=== PATIENT | female | born 1970 | race Caucasian/White ===

== ENCOUNTER 2017-03-05 14:08 | Emergency (ER) | payer SELFPAY ==
[2017-03-05] MEDS ORDERED: NORMAL SALINE 1000 ML 1,000 ML IV PRN (14:38)
[2017-03-05] MEDS ORDERED: ONDANSETRON HCL INJ/PF 4 MG/2 ML SDV IV ONE (14:38)
[2017-03-05] MEDS ORDERED: KETOROLAC TROMETHAMINE INJ/PF 30 MG/1 ML SDV IV ONE (14:38)
--- NOTE | 2017-03-05 14:40 | ER Document Report ---
ED General - General Chief Complaint: Abdominal Injury Stated Complaint: ABDOMINAL PAIN Time Seen by Provider: 03/05/17 14:32 Mode of Arrival: Ambulatory Information source: Patient TRAVEL OUTSIDE OF THE [place] IN LAST 30 DAYS: No - HPI Patient complains to provider of: Generalized pain Onset: Other - 2-3 days Onset/Duration: Gradual, Persistent Quality of pain: Achy Severity: Moderate Pain Level: 3 Associated symptoms: Body/muscle aches, Nausea Exacerbated by: Movement Relieved by: Denies Similar symptoms previously: Yes Recently seen / treated by doctor: Yes Notes: Patient is a 44-year-old female with a history of chronic pain from arthritis, as well as hypertension, who presents to the emergency room today complaining of knee pain, abdominal pain, back pain, nausea, symptoms have been going on for the past few days, she reports having hot flashes at times, denies vomiting or diarrhea, last bowel movement was yesterday and normal without blood, patient denies dysuria, no vaginal discharge or irregular bleeding, denies a history of similar symptoms previously, she was seen by pain management on the of last month, and had baclofen added to her medication regimen but no other recent medication change, patient did not list chest pain as 1 of her concerns, however when I was interviewing and examining her she stated nothing hurts in her chest - Related Data Allergies/Adverse Reactions: No Known Allergies Allergy (Verified 05/01/15 14:08) Past Medical History - General Information source: Patient - Social History Smoking Status: Never Smoker Family History: Reviewed & Not Pertinent Patient has suicidal ideation: No Patient has homicidal ideation: No - Past Medical History Cardiac Medical History: Reports: Hx Hypertension Denies: Hx Coronary Artery Disease, Hx Heart Attack Pulmonary Medical History: Reports: Hx Asthma Denies: Hx Bronchitis, Hx COPD, Hx Pneumonia Neurological Medical History: Denies: Hx Cerebrovascular Accident, Hx Seizures Renal/ Medical History: Denies: Hx Peritoneal Dialysis Musculoskeltal Medical History: Denies Hx Arthritis Past Surgical History: Reports: Hx Tubal Ligation - Immunizations Hx Diphtheria, Pertussis, Tetanus Vaccination: Yes Review of Systems - Review of Systems Constitutional: No symptoms reported EENT: No symptoms reported Cardiovascular: No symptoms reported Respiratory: No symptoms reported Gastrointestinal: See HPI Genitourinary: No symptoms reported Female Genitourinary: No symptoms reported Musculoskeletal: See HPI Skin: No symptoms reported Hematologic/Lymphatic: No symptoms reported Neurological/Psychological: No symptoms reported -: Yes All other systems reviewed and negative Physical Exam - Vital signs Vitals: Temp Pulse Resp BP Pulse Ox 98 F 80 18 143/108 H 100 03/05/17 14:11 03/05/17 14:11 03/05/17 14:11 03/05/17 14:11 03/05/17 14:11 Interpretation: Normal - General General appearance: Appears well, Alert - HEENT Head: Normocephalic, Atraumatic Eyes: Normal Pupils: PERRL - Respiratory Respiratory status: No respiratory distress Chest status: Nontender Breath sounds: Normal Chest palpation: Normal - Cardiovascular Rhythm: Regular Heart sounds: Normal auscultation Murmur: No - Abdominal Inspection: Normal Distension: No distension Bowel sounds: Normal Tenderness: Nontender Organomegaly: No organomegaly - Back Back: Normal, Tender - Tender to palpate in thoracic and lower lumbar paraspinal musculature, mostly on the right with mild tenderness on the left as well - Extremities General upper extremity: Normal inspection, Nontender, Normal color, Normal ROM , Normal temperature General lower extremity: Normal inspection, Nontender, Normal color, Normal ROM , Normal temperature, Normal weight bearing. No: Kenton's sign - Neurological Neuro grossly intact: Yes Cognition: Normal Orientation: AAOx4 [place] Coma Scale Eye Opening: Spontaneous David Coma Scale Verbal: Oriented [place] Coma Scale Motor: Obeys Commands David Coma Scale Total: 15 Speech: Normal Motor strength normal: LUE, RUE, LLE, RLE Sensory: Normal - Psychological Associated symptoms: Normal affect, Normal mood - Skin Skin Temperature: Warm Skin Moisture: Dry Skin Color: Normal Course - Re-evaluation Re-evalutation: 03/05/17 20:04 Lab and imaging findings were discussed with patient at bedside which are unremarkable, she was advised to continue taking her medications at home, 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 or return if symptoms worsen, patient acknowledges understanding and agreement with this plan - Vital Signs Vital signs: Temp Pulse Resp BP Pulse Ox 98 F 80 15 116/68 98 03/05/17 14:11 03/05/17 14:11 03/05/17 17:31 03/05/17 17:31 03/05/17 17:31 - Laboratory Result Diagrams: 03/05/17 15:05 03/05/17 15:05 Laboratory results interpreted by me: 03/05/17 03/05/17 03/05/17 15:05 15:05 16:40 RDW 14.5 H Creatinine 1.43 H Est GFR ( Amer) 48 L Est GFR (Non-Af Amer) 40 L Calcium 10.4 H Urine Blood SMALL H - Diagnostic Test Radiology reviewed: Image reviewed, Reports reviewed - EKG Interpretation by Me EKG shows normal: Sinus rhythm Rate: Normal Rhythm: NSR Discharge - Discharge Clinical Impression: Body aches Condition: Stable Disposition: HOME, SELF-CARE Instructions: Chronic Back Pain ([facility]), Low Back Pain ([facility]), Abdominal Pain ([facility] ) Additional Instructions: Follow up with your primary care provider in one to 2 days. Return to the emergency room immediately if symptoms worsen or any additional concerns.
--- NOTE | 2017-03-05 15:27 | RADIOLOGY REPORT (SQ) ---
EXAM DESCRIPTION: CHEST PA/LAT COMPLETED DATE/TIME: 03/05/2017 3:12 pm REASON FOR STUDY: cp COMPARISON: None. EXAM PARAMETERS: NUMBER OF VIEWS: two views TECHNIQUE: Digital Frontal and Lateral radiographic views of the chest acquired. RADIATION DOSE: NA LIMITATIONS: none FINDINGS: LUNGS AND PLEURA: No opacities, masses or pneumothorax. No pleural effusion. MEDIASTINUM AND HILAR STRUCTURES: No masses or contour abnormalities. HEART AND VASCULAR STRUCTURES: Heart normal size. No evidence for failure. BONES: No acute findings. HARDWARE: None in the chest. OTHER: No other significant finding. IMPRESSION: NO SIGNIFICANT RADIOGRAPHIC FINDING IN THE CHEST. TECHNICAL DOCUMENTATION: JOB ID: [id number] [employer]- All Rights Reserved
[2017-03-05 15:36] LABS: ABSOLUTE BASOPHILS # (AUTO) 0.1 10^3/uL (0.0-0.2); ABSOLUTE EOSINOPHILS # (AUTO) 0.2 10^3/uL (0.0-0.6); ABSOLUTE LYMPHOCYTES (AUTO) 2.3 10^3/uL (0.5-4.7); ABSOLUTE MONOCYTES (AUTO) 0.6 10^3/uL (0.1-1.4); ABSOLUTE NEUT (AUTO) 4.7 10^3/uL (1.7-8.2); BASOPHILS % (AUTO) 1.2 % (0-2); EOSINOPHILS % (AUTO) 2.5 % (0-6); HEMATOCRIT 42.5 % (36.0-47.0); HGB HCT DIFFERENCE -0.5; LYMPHOCYTES % (AUTO) 29.5 % (13-45); MEAN CORPUSCULAR HEMOGLOBIN 29.5 pg (27.0-33.4); MEAN CORPUSCULAR HGB CONC 32.9 g/dL (32.0-36.0); MEAN CORPUSCULAR VOLUME 90 fl (80-97); MONOCYTES % (AUTO) 7.3 % (3-13); RED BLOOD COUNT 4.74 10^6/uL (3.72-5.28); RED CELL DISTRIBUTION WIDTH 14.5 % (11.5-14.0); SEGMENTED NEUTROPHILS % (AUTO) 59.5 % (42-78); WHITE BLOOD COUNT 7.8 10^3/uL (4.0-10.5)
[2017-03-05 15:50] LABS: ALANINE AMINOTRANSFERASE 25 U/L (9-52); ALBUMIN 4.4 g/dL (3.5-5.0); ALKALINE PHOSPHATASE 75 U/L (38-126); ANION GAP 13 (5-19); ASPARTATE AMINO TRANSFERASE 17 U/L (14-36); BILIRUBIN,DIRECT 0.3 mg/dL (0.0-0.4); BILIRUBIN,TOTAL 0.9 mg/dL (0.2-1.3); BLOOD UREA NITROGEN 18 mg/dL (7-20); CALCIUM 10.4 mg/dL (8.4-10.2); CARBON DIOXIDE 27 mmol/L (22-30); CHLORIDE 99 mmol/L (98-107); CREATININE RESULT 1.43 mg/dL (0.52-1.25); GLUCOSE 92 mg/dL (75-110); LIPASE 107.8 U/L (23-300); POTASSIUM 4.1 mmol/L (3.6-5.0); SODIUM 139.4 mmol/L (137-145)
--- NOTE | 2017-03-05 16:47 | EKG REPORT ---
SEVERITY:- ABNORMAL ECG - SINUS RHYTHM BORDERLINE LEFT AXIS DEVIATION BORDERLINE T ABNORMALITIES, ANTERIOR LEADS : Confirmed by: Mohan Mckeon MD 05-Mar-2017 16:46:02
[2017-03-05 17:17] LABS: APPEARANCE,URINE CLOUDY; BILIRUBIN,URINE NEGATIVE (NEGATIVE); GLUCOSE, URINE NEGATIVE (NEGATIVE); KETONES,URINE NEGATIVE (NEGATIVE); LEUKOCYTE ESTERASE,URINE NEGATIVE (NEGATIVE); NITRITE,URINE NEGATIVE (NEGATIVE); PROTEIN,URINE NEGATIVE (NEGATIVE); URINE SPECIFIC GRAVITY 1.027; UROBILINOGEN,URINE NEGATIVE mg/dL (<2.0)
[2017-03-05 17:35] VITALS: BP 116/68
== END 2017-03-05 17:44 | disposition home or self-care (01) ==
LOC: ER 14:08
DX: M79.1 Myalgia (principal); R10.84 Generalized abdominal pain; I10 Essential (primary) hypertension; M25.569 Pain in unspecified knee; M54.9 Dorsalgia, unspecified; R11.0 Nausea
CPT/HCPCS: 93005; 99284; 96361; 96374; 96375; 36415; 87086; 83690; 85025; 80053; 81001; 84484; 71020; 93010; J1885; J2405; J7030

== ENCOUNTER 2017-05-02 08:53 | Emergency (ER) | payer SELFPAY ==
--- NOTE | 2017-05-02 09:32 | ER Document Report ---
ED Headache - General Chief Complaint: Headache >24 hrs old Stated Complaint: HEADACHE Time Seen by Provider: 05/02/17 09:31 Mode of Arrival: Ambulatory Information source: Patient TRAVEL OUTSIDE OF THE [place] IN LAST 30 DAYS: No - HPI Patient complains to provider of: Headache Patient reports: Occasional migraines, Other - HAS HAD INFREQUENT "MIGRAINES" IN THE PAST, THIS IS DIFFERENT. No: Brain neoplasm, Congenital anomally, Frequent migraines, Hx chronic headaches, Prior CVA, Prior neurologic eval, Prior hemorrhage, Prior TBI, ANTI TANK MISSILEMAN Shunt Onset: Other - 2 d AGO Onset was: Cannot pinpoint, Gradual Timing: Still present - INTENSITY VARIES, HAS RESOLVED FOR BRIEF PERIODS (AFTER TAKING HYDROCODONE), THEN RECURS Quality of pain: Sharp - BIFRONTAL, Throbbing Severity: Moderate Context: denies: CO exposure, Head injury, Insect bite, Meningitis exposure, Tick bite Associated symptoms: Photophobia. denies: Chills, Double/blurred vision, Fever , Nausea/vomiting, Sweaty Exacerbated by: Light, Movement Similar symptoms previously: No Recently seen / treated by doctor: No - Related Data Allergies/Adverse Reactions: No Known Allergies Allergy (Verified 05/02/17 09:11) Past Medical History - General Information source: Patient - Social History Smoking Status: Never Smoker Cigarette use (# per day): No Chew tobacco use (# tins/day): No Frequency of alcohol use: None Drug Abuse: None Lives with: Family Family History: Reviewed & Not Pertinent Patient has suicidal ideation: No - Past Medical History Cardiac Medical History: Reports: Hx Hypertension Denies: Hx Coronary Artery Disease, Hx Heart Attack Pulmonary Medical History: Reports: Hx Asthma Denies: Hx Bronchitis, Hx COPD, Hx Pneumonia Neurological Medical History: Reports: Hx Migraine - VERY RARE IN RECENT YEARS. Denies: Hx Cerebrovascular Accident, Hx Seizures Endocrine Medical History: Reports: None Renal/ Medical History: Reports: None. Denies: Hx Peritoneal Dialysis Malignancy Medical History: Reports: None GI Medical History: Reports: None Musculoskeltal Medical History: Reports None, Denies Hx Arthritis Psychiatric Medical History: Reports: None Past Surgical History: Reports: Hx Tubal Ligation - Immunizations Hx Diphtheria, Pertussis, Tetanus Vaccination: Yes Review of Systems - Review of Systems Constitutional: No symptoms reported EENT: No symptoms reported Cardiovascular: No symptoms reported Respiratory: No symptoms reported Gastrointestinal: No symptoms reported Genitourinary: No symptoms reported Female Genitourinary: No symptoms reported Musculoskeletal: Back pain - CHRONIC Skin: No symptoms reported Neurological/Psychological: See HPI Physical Exam - Vital signs Vitals: Temp Pulse Resp BP Pulse Ox 98.7 F 70 18 148/103 H 97 05/02/17 09:10 05/02/17 09:10 05/02/17 09:10 05/02/17 09:10 05/02/17 09:10 Interpretation: Hypertensive. No: Bradycardic, Tachycardic, Tachypneic, Febrile - General General appearance: Appears well, Alert In distress: None - HEENT Head: Normocephalic Eyes: Normal Conjunctiva: Normal Ears: Normal Nasal: Normal Mouth/Lips: Normal Mucous membranes: Normal - Respiratory Respiratory status: No respiratory distress Breath sounds: Normal - Cardiovascular Rhythm: Regular Heart sounds: Normal auscultation Murmur: No - Abdominal Inspection: Obese - Back Back: Normal - Extremities General upper extremity: Normal inspection General lower extremity: Normal inspection - Neurological Neuro grossly intact: Yes Cognition: Normal Orientation: AAOx4 - Psychological Associated symptoms: Normal affect, Normal mood - Skin Skin Temperature: Warm Skin Moisture: Dry Skin Color: Normal Skin Turgor: Elastic Course - Re-evaluation Re-evalutation: 05/02/17 11:41 Patient states headache is improved. Results of laboratory and radiographic studies discussed. She is advised to follow-up with her PCP concerning CT scan results. - Vital Signs Vital signs: Temp Pulse Resp BP Pulse Ox 98.7 F 70 18 148/103 H 97 05/02/17 09:10 05/02/17 09:10 05/02/17 09:10 05/02/17 09:10 05/02/17 09:10 - Laboratory Result Diagrams: 05/02/17 10:30 05/02/17 10:30 Laboratory results interpreted by me: 05/02/17 05/02/17 10:30 10:30 RDW 14.1 H Est GFR ( Amer) 58 L Est GFR (Non-Af Amer) 48 L - Diagnostic Test Radiology reviewed: Image reviewed, Reports reviewed Discharge - Discharge Clinical Impression: Hypertension, essential Headache Qualifiers: Headache type: unspecified Headache chronicity pattern: acute headache Intractability: not intractable Qualified Code(s): R51 - Headache Condition: Stable Disposition: HOME, SELF-CARE Instructions: Headache ([facility]), Reglan ([facility]), Intravenous (IV) Fluids ([facility]) Prescriptions: Butalb/Acetaminophen/Caffeine [Fioricet (50-325-40 mg) Tablet] 1 - 2 tab PO Q4H PRN #20 each PRN Reason: For Headache Referrals: HANNAH WARD MD [Primary Care Provider] - Follow up in 3-5 days
[2017-05-02] MEDS ORDERED: DIPHENHYDRAMINE HCL 50 MG/ML VIAL IV ONE (09:52)
[2017-05-02] MEDS ORDERED: METOCLOPRAMIDE HCL INJ/PF 10 MG/2 ML SDV IV ONE (09:52)
[2017-05-02] MEDS ORDERED: NORMAL SALINE 1000 ML 1,000 ML IV ONE (09:52)
--- NOTE | 2017-05-02 10:20 | RADIOLOGY REPORT (SQ) ---
EXAM DESCRIPTION: CT HEAD WITHOUT COMPLETED DATE/TIME: 05/02/2017 10:07 am REASON FOR STUDY: HEADACHE COMPARISON: None. TECHNIQUE: Axial images acquired through the brain without intravenous contrast. Images reviewed wi th bone, brain and subdural windows. Images stored on PACS. All CT scanners at this facility use dose modulation, iterative reconstruction, and/or weight based d osing when appropriate to reduce radiation dose to as low as reasonably achievable (ALARA). [facility]: Dose Right [facility]: CareDose [facility]: Dose Right [facility]: Teradose 4D [facility]: [employer] RADIATION DOSE: Up-to-date CT equipment and radiation dose reduction techniques were employed. CTDIv ol: 64.6 mGy. DLP: 1163 mGy-cm. mGy. LIMITATIONS: None. FINDINGS: VENTRICLES: Normal size and contour. CEREBRUM: No masses. No hemorrhage. No midline shift. No evidence for acute infarction. Normal gra y/white matter differentiation. No areas of low density in the white matter. CEREBELLUM: No masses. No hemorrhage. No alteration of density. No evidence for acute infarction. EXTRAAXIAL SPACES: No fluid collections. No masses. ORBITS AND GLOBE: No intra- or extraconal masses. Normal contour of globe without masses. CALVARIUM: No fracture. PARANASAL SINUSES: The large mucous retention cysts in the right maxillary sinus and a couple of smal l retention cysts in the left. SOFT TISSUES: No mass or hematoma. OTHER: The sella has a slightly expanded. No mass is appreciated in the sella. There is no mass ext ending into the suprasellar space. IMPRESSION: 1. There is no acute intracranial pathology. 2. Possible empty sella syndrome. 3. Maxillary sinus disease. EVIDENCE OF ACUTE STROKE: NO. COMMENT: Quality ID # [id number]: Final reports with documentation of one or more dose reduction techniques (e.g., Automated exposure control, adjustment of the mA and/or kV according to patient size, use of iterative reconstruction technique) TECHNICAL DOCUMENTATION: JOB ID: [id number] [employer]- All Rights Reserved
[2017-05-02 10:44] LABS: ABSOLUTE BASOPHILS # (AUTO) 0.1 10^3/uL (0.0-0.2); ABSOLUTE EOSINOPHILS # (AUTO) 0.2 10^3/uL (0.0-0.6); ABSOLUTE LYMPHOCYTES (AUTO) 2.2 10^3/uL (0.5-4.7); ABSOLUTE MONOCYTES (AUTO) 0.4 10^3/uL (0.1-1.4); ABSOLUTE NEUT (AUTO) 3.9 10^3/uL (1.7-8.2); BASOPHILS % (AUTO) 1.9 % (0-2); EOSINOPHILS % (AUTO) 3.4 % (0-6); HEMATOCRIT 39.2 % (36.0-47.0); HGB HCT DIFFERENCE -0.2; LYMPHOCYTES % (AUTO) 31.9 % (13-45); MEAN CORPUSCULAR HEMOGLOBIN 28.9 pg (27.0-33.4); MEAN CORPUSCULAR HGB CONC 33.1 g/dL (32.0-36.0); MEAN CORPUSCULAR VOLUME 87 fl (80-97); MONOCYTES % (AUTO) 5.9 % (3-13); RED BLOOD COUNT 4.49 10^6/uL (3.72-5.28); RED CELL DISTRIBUTION WIDTH 14.1 % (11.5-14.0); SEGMENTED NEUTROPHILS % (AUTO) 56.9 % (42-78); WHITE BLOOD COUNT 6.9 10^3/uL (4.0-10.5)
[2017-05-02 11:04] LABS: ALANINE AMINOTRANSFERASE 27 U/L (9-52); ALBUMIN 3.8 g/dL (3.5-5.0); ALKALINE PHOSPHATASE 71 U/L (38-126); ANION GAP 8 (5-19); ASPARTATE AMINO TRANSFERASE 17 U/L (14-36); BILIRUBIN,DIRECT 0.3 mg/dL (0.0-0.4); BILIRUBIN,TOTAL 0.7 mg/dL (0.2-1.3); BLOOD UREA NITROGEN 8 mg/dL (7-20); CALCIUM 9.5 mg/dL (8.4-10.2); CARBON DIOXIDE 29 mmol/L (22-30); CHLORIDE 101 mmol/L (98-107); CREATININE RESULT 1.22 mg/dL (0.52-1.25); GLUCOSE 88 mg/dL (75-110); POTASSIUM 3.7 mmol/L (3.6-5.0); SODIUM 138.1 mmol/L (137-145); TOTAL PROTEIN 6.9 g/dL (6.3-8.2)
[2017-05-02 11:37] LABS: APPEARANCE,URINE CLEAR; BILIRUBIN,URINE NEGATIVE (NEGATIVE); GLUCOSE, URINE NEGATIVE (NEGATIVE); KETONES,URINE NEGATIVE (NEGATIVE); LEUKOCYTE ESTERASE,URINE NEGATIVE (NEGATIVE); NITRITE,URINE NEGATIVE (NEGATIVE); PROTEIN,URINE NEGATIVE (NEGATIVE); URINE SPECIFIC GRAVITY 1.003; UROBILINOGEN,URINE NEGATIVE mg/dL (<2.0)
[2017-05-02 11:56] VITALS: BP 145/110
== END 2017-05-02 11:55 | disposition home or self-care (01) ==
LOC: ER 08:53
DX: R51 Headache (principal); I10 Essential (primary) hypertension; M54.9 Dorsalgia, unspecified; G89.29 Other chronic pain
CPT/HCPCS: 99284; 96374; 96375; 36415; 85025; 80053; 81001; 70450; J1200; J2765; J7030

== ENCOUNTER 2017-05-11 19:28 | Emergency (ER) | payer OTHER ==
[2017-05-11 20:03] VITALS: BP 149/93
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
[2017-05-11] MEDS ORDERED: KETOROLAC TROMETHAMINE 60 MG/2 ML SDV IM ONE (20:42)
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
== END 2017-05-11 22:05 | disposition home or self-care (01) ==
LOC: ER 19:28
DX: S09.90XA Unspecified injury of head, initial encounter (principal); M25.462 Effusion, left knee; M25.562 Pain in left knee; R51 Headache; M54.9 Dorsalgia, unspecified; G89.29 Other chronic pain; V87.7XXA Person injured in collision between other specified motor vehicles (traffic), initial encounter
CPT/HCPCS: 99283; 96372; 73562; L1830; J1885

== ENCOUNTER 2017-09-30 07:26 | Emergency (ER) | payer OTHER ==
[2017-09-30] MEDS ORDERED: CYCLOBENZAPRINE HCL 10 MG TABLET PO ONE (07:46)
[2017-09-30 07:54] VITALS: BP 162/108
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
--- NOTE | 2017-09-30 14:45 | EKG REPORT ---
SEVERITY:- BORDERLINE ECG - SINUS RHYTHM PROBABLE LEFT ATRIAL ABNORMALITY BORDERLINE PROLONGED QT INTERVAL : Confirmed by: Mohan Mckeon MD 30-Sep-2017 14:44:32
== END 2017-09-30 09:45 | disposition home or self-care (01) ==
LOC: ER 07:26
DX: M25.561 Pain in right knee (principal); R07.9 Chest pain, unspecified; M54.2 Cervicalgia; V47.5XXA Car driver injured in collision with fixed or stationary object in traffic accident, initial encounter; I10 Essential (primary) hypertension; Z98.51 Tubal ligation status
CPT/HCPCS: 70450; 71046; 72125; 93005; 93010; 99285

== ENCOUNTER 2018-03-09 12:53 | Emergency (ER) | payer SELFPAY ==
[2018-03-09] MEDS ORDERED: DIPHENHYDRAMINE HCL 50 MG/ML VIAL IV ONE (15:43)
[2018-03-09] MEDS ORDERED: NORMAL SALINE 1000 ML 1,000 ML IV ONE (15:43)
[2018-03-09] MEDS ORDERED: ONDANSETRON HCL INJ/PF 4 MG/2 ML SDV IV ONE (15:43)
--- NOTE | 2018-03-09 15:47 | ER Document Report ---
ED Medical Screen (RME) - General Chief Complaint: Headache Stated Complaint: SIDE PAIN Time Seen by Provider: 03/09/18 15:34 Mode of Arrival: Ambulatory Information source: Patient TRAVEL OUTSIDE OF THE [place] IN LAST 30 DAYS: No - HPI Notes: 03/09/18 15:44 47-year-old female who has a medical history of lumbar back pain and sees [facility] for this issue and hypertension presents to the ED with complaints of severe headaches that started this morning approximately 4 hours ago also states she was seeing spots for about a week. States headache radiates to her right back which is causing right-sided chest pain. Patient states she started with right upper quadrant abdominal pain last night, sharp and constant. Has not tried any qaln-hmn-yreziss medication for this pain. Worse with time, nothing makes better. Patient was able to eat oatmeal this morning. Denies any nausea or vomiting. s1 s2 regular lungs cta tenderness to RUQ on palpation with rebound, +dayana's sign I have greeted and performed a rapid initial assessment of this patient. A comprehensive ED assessment and evaluation of the patient, analysis of test results and completion of medical decision making process will be conducted by an additional ED providers. - Related Data Allergies/Adverse Reactions: No Known Allergies Allergy (Verified 05/02/17 09:11) Past Medical History - Past Medical History Cardiac Medical History: Reports: Hx Hypertension Denies: Hx Coronary Artery Disease, Hx Heart Attack Pulmonary Medical History: Reports: Hx Asthma Denies: Hx Bronchitis, Hx COPD, Hx Pneumonia Neurological Medical History: Reports: Hx Migraine - VERY RARE IN RECENT YEARS. Denies: Hx Cerebrovascular Accident, Hx Seizures Renal/ Medical History: Denies: Hx Peritoneal Dialysis Musculoskeltal Medical History: Denies Hx Arthritis Past Surgical History: Reports: Hx Tubal Ligation - Immunizations Hx Diphtheria, Pertussis, Tetanus Vaccination: Yes Physical Exam - Vital signs Vitals: Temp Pulse Resp BP Pulse Ox 98.8 F 87 20 151/91 H 98 03/09/18 13:43 03/09/18 13:43 03/09/18 13:43 03/09/18 13:43 03/09/18 13:43 Course - Vital Signs Vital signs: Temp Pulse Resp BP Pulse Ox 98.8 F 87 20 151/91 H 98 03/09/18 13:43 03/09/18 13:43 03/09/18 13:43 03/09/18 13:43 03/09/18 13:43 Doctor's Discharge - Discharge Referrals: HANNAH WARD MD [Primary Care Provider] - Follow up as needed
--- NOTE | 2018-03-09 16:22 | RADIOLOGY REPORT (SQ) ---
EXAM DESCRIPTION: CHEST SINGLE VIEW COMPLETED DATE/TIME: 03/09/2018 4:08 pm REASON FOR STUDY: right sided chest pain COMPARISON: 09/30/2017 EXAM PARAMETERS: NUMBER OF VIEWS: One view. TECHNIQUE: Single frontal radiographic view of the chest acquired. RADIATION DOSE: NA LIMITATIONS: None. FINDINGS: LUNGS AND PLEURA: No opacities, masses or pneumothorax. No pleural effusion. MEDIASTINUM AND HILAR STRUCTURES: No masses. Contour normal. HEART AND VASCULAR STRUCTURES: Heart normal in size. Normal vasculature. BONES: No acute findings. HARDWARE: None in the chest. OTHER: No other significant finding. IMPRESSION: NO ACUTE RADIOGRAPHIC FINDING IN THE CHEST. TECHNICAL DOCUMENTATION: JOB ID: [id number] [employer]- All Rights Reserved Reading location - IP/workstation name: [email or web address]
--- NOTE | 2018-03-09 16:26 | RADIOLOGY REPORT (SQ) ---
EXAM DESCRIPTION: CT HEAD WITHOUT COMPLETED DATE/TIME: 03/09/2018 4:13 pm REASON FOR STUDY: severe santiago, different than her other santiago COMPARISON: 09/30/2017 TECHNIQUE: Axial images acquired through the brain without intravenous contrast. Images reviewed wi th bone, brain and subdural windows. Additional sagittal and coronal reconstructions were generated. Images stored on PACS. All CT scanners at this facility use dose modulation, iterative reconstruction, and/or weight based d osing when appropriate to reduce radiation dose to as low as reasonably achievable (ALARA). [facility]: Dose Right [facility]: CareDose [facility]: Dose Right [facility]: Teradose 4D [facility]: [employer] RADIATION DOSE: CT Rad equipment meets quality standard of care and radiation dose reduction techniq ues were employed. CTDIvol: 53.2 mGy. DLP: 1124 mGy-cm. mGy. LIMITATIONS: None. FINDINGS: VENTRICLES: Normal size and contour. CEREBRUM: No masses. No hemorrhage. No midline shift. No evidence for acute infarction. Normal gra y/white matter differentiation. No areas of low density in the white matter. CEREBELLUM: No masses. No hemorrhage. No alteration of density. No evidence for acute infarction. EXTRAAXIAL SPACES: No fluid collections. No masses. ORBITS AND GLOBE: No intra- or extraconal masses. Normal contour of globe without masses. CALVARIUM: No fracture. PARANASAL SINUSES: No fluid or mucosal thickening. SOFT TISSUES: No mass or hematoma. OTHER: The sella is prominent but no pituitary mass is appreciated. IMPRESSION: No acute intracranial imaging findings. Prominent sella may suggest empty sella syndrom e. Consider MRI for evaluation of the pituitary. EVIDENCE OF ACUTE STROKE: NO. COMMENT: Quality ID # [id number]: Final reports with documentation of one or more dose reduction techniques (e.g., Automated exposure control, adjustment of the mA and/or kV according to patient size, use of iterative reconstruction technique) TECHNICAL DOCUMENTATION: JOB ID: [id number] [employer]- All Rights Reserved Reading location - IP/workstation name: [email or web address]
[2018-03-09 16:55] LABS: ABSOLUTE BASOPHILS # (AUTO) 0.1 10^3/uL (0.0-0.2); ABSOLUTE EOSINOPHILS # (AUTO) 0.1 10^3/uL (0.0-0.6); ABSOLUTE LYMPHOCYTES (AUTO) 2.9 10^3/uL (0.5-4.7); ABSOLUTE MONOCYTES (AUTO) 0.5 10^3/uL (0.1-1.4); BASOPHILS % (AUTO) 1.3 % (0-2); EOSINOPHILS % (AUTO) 1.5 % (0-6); HEMOGLOBIN 13.4 g/dL (12.0-15.5); LYMPHOCYTES % (AUTO) 33.2 % (13-45); MEAN CORPUSCULAR HEMOGLOBIN 28.9 pg (27.0-33.4); MEAN CORPUSCULAR HGB CONC 32.7 g/dL (32.0-36.0); MEAN CORPUSCULAR VOLUME 88 fl (80-97); MONOCYTES % (AUTO) 6.2 % (3-13); PLATELET COUNT 278 10^3/uL (150-450); RED BLOOD COUNT 4.64 10^6/uL (3.72-5.28); RED CELL DISTRIBUTION WIDTH 14.4 % (11.5-14.0); SEGMENTED NEUTROPHILS % (AUTO) 57.8 % (42-78); TOTAL CELLS COUNTED % (AUTO) 100 %; WHITE BLOOD COUNT 8.7 10^3/uL (4.0-10.5)
[2018-03-09 17:15] LABS: APPEARANCE,URINE SLIGHTLY-CLOUDY; BILIRUBIN,URINE NEGATIVE (NEGATIVE); COLOR,URINE YELLOW; GLUCOSE, URINE NEGATIVE (NEGATIVE); KETONES,URINE NEGATIVE (NEGATIVE); LEUKOCYTE ESTERASE,URINE NEGATIVE (NEGATIVE); NITRITE,URINE NEGATIVE (NEGATIVE); PROTEIN,URINE NEGATIVE (NEGATIVE); URINE SPECIFIC GRAVITY 1.017; UROBILINOGEN,URINE NEGATIVE mg/dL (<2.0)
[2018-03-09 17:27] LABS: ALANINE AMINOTRANSFERASE 7 U/L (9-52); ALBUMIN 4.2 g/dL (3.5-5.0); ALKALINE PHOSPHATASE 70 U/L (38-126); ANION GAP 10 (5-19); ASPARTATE AMINO TRANSFERASE 59 U/L (14-36); BILIRUBIN,DIRECT 0.3 mg/dL (0.0-0.4); BILIRUBIN,TOTAL 0.7 mg/dL (0.2-1.3); BLOOD UREA NITROGEN 9 mg/dL (7-20); CALCIUM 8.8 mg/dL (8.4-10.2); CARBON DIOXIDE 30 mmol/L (22-30); CHLORIDE 103 mmol/L (98-107); CREATINE KINASE 149 U/L (30-135); GLUCOSE 88 mg/dL (75-110); LIPASE 91.6 U/L (23-300); POTASSIUM 3.8 mmol/L (3.6-5.0); SODIUM 142.5 mmol/L (137-145); TOTAL PROTEIN 7.8 g/dL (6.3-8.2)
[2018-03-09 17:37] LABS: CREATINE KINASE MB 0.85 ng/mL (<4.55)
[2018-03-09 17:40] LABS: TROPONIN I < 0.012 ng/mL
--- NOTE | 2018-03-09 18:09 | RADIOLOGY REPORT (SQ) ---
EXAM DESCRIPTION: U/S ABDOMEN LTD W/DOPPLER COMPLETED DATE/TIME: 03/09/2018 5:57 pm REASON FOR STUDY: RUQ abd pain COMPARISON: None. TECHNIQUE: Dynamic and static grayscale images acquired of the right upper quadrant and recorded on PACS. Additional selected color Doppler and spectral images recorded. LIMITATIONS: Study limited due to acoustical interference from fat or from air in the bowel. FINDINGS: PANCREAS: Parts or all of the pancreas poorly seen secondary to acoustical interference fr om fat or from air in the bowel. LIVER: Echotexture is coarse with increased echogenicity consistent with fatty infiltration. No mass es. LIVER VASCULATURE: Normal directional flow of the main portal vein and hepatic veins. GALLBLADDER: No stones. Normal wall thickness. No pericholecystic fluid. ULTRASOUND-DETECTED SOLIS'S SIGN: Negative. INTRAHEPATIC DUCTS AND COMMON DUCT: CBD poorly visualized. Intrahepatic ducts normal caliber. No lv ling defects. INFERIOR VENA CAVA: Normal flow. AORTA: No aneurysm. RIGHT KIDNEY: Normal size. Normal echogenicity. No solid or suspicious masses. No hydronephrosis. No calcifications. PERITONEAL CAVITY AND RIGHT PLEURAL SPACE: No ascites or effusions. OTHER: No other significant finding. IMPRESSION: FATTY LIVER. PANCREAS PARTIALLY OR COMPLETELY OBSCURED. OTHERWISE NORMAL RIGHT UPPER TATIANA DRANT ULTRASOUND. TECHNICAL DOCUMENTATION: JOB ID: [id number] [place]-72 2010 [employer]- All Rights Reserved Reading location - IP/workstation name: [email or web address]
[2018-03-09] MEDS ORDERED: PROCHLORPERAZINE EDISYLATE INJ 10 MG/2 ML VIAL IV ONE (20:24)
--- NOTE | 2018-03-09 20:42 | ER Document Report ---
ED General - General Mode of Arrival: Ambulatory Information source: Patient TRAVEL OUTSIDE OF THE [place] IN LAST 30 DAYS: No <RANDY HART - Last Filed: 03/09/18 22:14> <ADAMBOONE Tabor - Last Filed: 03/10/18 13:28> - General Chief Complaint: Headache Stated Complaint: SIDE PAIN Time Seen by Provider: 03/09/18 15:34 Notes: Patient is a 47-year-old female presenting to the emergency department complaining of a right-sided headache, right knee pain and right-sided abdominal pain which radiates into the right side of her back. Patient states that she initially had right sided abdominal pain yesterday which radiated to her back and this morning she woke up with a right sided headache and right- sided knee pain. She also complains of some nausea. She denies any vomiting, sick contacts, fever, cough, congestion, or new added life stressors. Of significance, patient states she is currently taking Oxycodone for arthritis. (RANDY HART) - Related Data Allergies/Adverse Reactions: No Known Allergies Allergy (Verified 05/02/17 09:11) Past Medical History - General Information source: Patient - Social History Smoking Status: Never Smoker Chew tobacco use (# tins/day): No Frequency of alcohol use: None Drug Abuse: None Family History: Reviewed & Not Pertinent Patient has suicidal ideation: No Patient has homicidal ideation: No - Past Medical History Cardiac Medical History: Reports: Hx Hypertension Pulmonary Medical History: Reports: Hx Asthma Neurological Medical History: Reports: Hx Migraine - VERY RARE IN RECENT YEARS Past Surgical History: Reports: Hx Tubal Ligation - Immunizations Hx Diphtheria, Pertussis, Tetanus Vaccination: Yes <RANDY HART - Last Filed: 03/09/18 22:14> Review of Systems - Review of Systems Constitutional: No symptoms reported EENT: No symptoms reported Cardiovascular: No symptoms reported Respiratory: No symptoms reported Gastrointestinal: See HPI, Abdominal pain, Nausea Genitourinary: No symptoms reported Female Genitourinary: No symptoms reported Musculoskeletal: See HPI Skin: No symptoms reported Hematologic/Lymphatic: No symptoms reported Neurological/Psychological: See HPI, Headaches -: Yes All other systems reviewed and negative <RANDY HART - Last Filed: 03/09/18 22:14> Physical Exam <RANDY HART - Last Filed: 03/09/18 22:14> <BOONE MEDINA - Last Filed: 03/10/18 13:28> - Vital signs Vitals: Temp Pulse Resp BP Pulse Ox 98.8 F 87 20 151/91 H 98 03/09/18 13:43 03/09/18 13:43 03/09/18 13:43 03/09/18 13:43 03/09/18 13:43 - Notes Notes: GENERAL: Alert, interacts well. No acute distress. HEAD: Normocephalic, atraumatic. EYES: Pupils equal, round, and reactive to light. Extraocular movements intact. ENT: Oral mucosa moist, tongue midline. NECK: Full range of motion. Supple. Trachea midline. LUNGS: Clear to auscultation bilaterally, no wheezes, rales, or rhonchi. No respiratory distress. HEART: Regular rate and rhythm. No murmurs, gallops, or rubs. ABDOMEN: Soft, morbidly obese, non-tender, no guarding, rebounding or rigidity. Non-distended. Bowel sounds present in all 4 quadrants. EXTREMITIES: Moves all 4 extremities spontaneously. No edema. No cyanosis. No crepitus or tenderness to palpation of right knee. FROM BLE. NEUROLOGICAL: Alert and oriented x3. Normal speech. PSYCH: Normal affect, normal mood. SKIN: Warm, dry, normal turgor. No rashes or lesions noted. (RANDY HART) Course - Laboratory Result Diagrams: 03/09/18 16:30 03/09/18 16:30 <RANDY HART - Last Filed: 03/09/18 22:14> - Laboratory Result Diagrams: 03/09/18 16:30 03/09/18 16:30 <BOONE MEDINA - Last Filed: 03/10/18 13:28> - Re-evaluation Re-evalutation: 03/09/18 21:21 Patient history encompasses a wide variety of complaints although her testing shows no acute abnormalities. She is well-appearing and neurologically intact with no motor or sensory deficits. Patient's headache improved with Compazine will provide outpatient prescription. I did discuss incidental findings and recommended outpatient MRI through her primary care provider per radiologist recommendations. Return precautions provided (BOONE MEDINA) - Vital Signs Vital signs: Temp Pulse Resp BP Pulse Ox 98.8 F 87 23 H 152/87 H 100 03/09/18 13:43 03/09/18 13:43 03/09/18 21:18 03/09/18 21:18 03/09/18 21:18 - Laboratory Laboratory results interpreted by me: 03/09/18 03/09/18 03/09/18 16:30 16:30 16:30 RDW 14.4 H Est GFR (Non-Af Amer) 53 L AST 59 H ALT 7 L Creatine Kinase 149 H Urine Blood SMALL H Discharge <RANDY HART - Last Filed: 03/09/18 22:14> <BOONE MEDINA - Last Filed: 03/10/18 13:28> - Discharge Clinical Impression: Headache Qualifiers: Headache type: unspecified Headache chronicity pattern: unspecified pattern Intractability: not intractable Qualified Code(s): R51 - Headache Abdominal pain Qualifiers: Abdominal location: right upper quadrant Qualified Code(s): R10.11 - Right upper quadrant pain Knee pain, right Qualifiers: Chronicity: unspecified Qualified Code(s): M25.561 - Pain in right knee Condition: Good Disposition: HOME, SELF-CARE Additional Instructions: Per discussion, please follow-up with her primary care physician for consideration of outpatient testing (MRI) of your brain. Impression your care physician can have records sent to him for further explanation. Please take Compazine for headache as prescribed as needed. Please watch her diet and reduce the amount of fatty foods and acidic foods to eat if symptoms continue regarding your abdominal pain experience. Please return to emergency department for any worsening symptoms or development of fever and abdominal pain. Prescriptions: Prochlorperazine Maleate [Compazine 10 mg Tablet] 10 mg PO ASDIR PRN #20 tablet PRN Reason: Referrals: HANNAH WARD MD [Primary Care Provider] - Follow up as needed Scribe Attestation: 03/10/18 13:28 I personally performed the services described in the documentation, reviewed and edited the documentation which was dictated to the scribe in my presence, and it accurately records my words and actions. (BOONE MEDINA) Scribe Documentation - Scribe Written by Scribe:: Wily Bird, 03/09/2018 20:43 acting as scribe for :: Adam <RANDY HART - Last Filed: 03/09/18 22:14>
[2018-03-09 21:43] VITALS: BP 152/87
== END 2018-03-09 21:43 | disposition home or self-care (01) ==
LOC: ER 12:53
DX: R51 Headache (principal); M25.561 Pain in right knee; R10.11 Right upper quadrant pain; R11.0 Nausea; I10 Essential (primary) hypertension; Z98.51 Tubal ligation status
CPT/HCPCS: 99285; 96361; 96374; 96375; 36415; 82553; 82550; 83690; 85025; 80053; 81001; 84484; 71045; 76705; 93976; 70450; J1200; J0780; J2405; J7030

== ENCOUNTER 2018-08-07 10:44 | Emergency (ER) | payer SELFPAY ==
[2018-08-07] MEDS ORDERED: ASPIRIN 81 MG TABLET, CHEWABLE PO ONE (11:41)
[2018-08-07 12:18] LABS: ABSOLUTE BASOPHILS # (AUTO) 0.1 10^3/uL (0.0-0.2); ABSOLUTE EOSINOPHILS # (AUTO) 0.2 10^3/uL (0.0-0.6); ABSOLUTE LYMPHOCYTES (AUTO) 2.6 10^3/uL (0.5-4.7); ABSOLUTE MONOCYTES (AUTO) 0.5 10^3/uL (0.1-1.4); ABSOLUTE NEUT (AUTO) 3.5 10^3/uL (1.7-8.2); BASOPHILS % (AUTO) 1.3 % (0-2); EOSINOPHILS % (AUTO) 3.2 % (0-6); HEMATOCRIT 39.1 % (36.0-47.0); HEMOGLOBIN 12.9 g/dL (12.0-15.5); LYMPHOCYTES % (AUTO) 37.6 % (13-45); MEAN CORPUSCULAR HEMOGLOBIN 28.5 pg (27.0-33.4); MEAN CORPUSCULAR VOLUME 86 fl (80-97); MONOCYTES % (AUTO) 7.1 % (3-13); PLATELET COUNT 239 10^3/uL (150-450); RED BLOOD COUNT 4.53 10^6/uL (3.72-5.28); RED CELL DISTRIBUTION WIDTH 13.9 % (11.5-14.0); SEGMENTED NEUTROPHILS % (AUTO) 50.8 % (42-78); TOTAL CELLS COUNTED % (AUTO) 100 %; WHITE BLOOD COUNT 6.8 10^3/uL (4.0-10.5)
--- NOTE | 2018-08-07 12:22 | ER Document Report ---
ED Respiratory Problem - General Mode of Arrival: Ambulatory Information source: Patient TRAVEL OUTSIDE OF THE [place] IN LAST 30 DAYS: No <JOLEEN GRACE - Last Filed: 08/07/18 14:45> <NICOLE LONDONO - Last Filed: 08/07/18 15:29> - General Chief Complaint: Chest Pain Stated Complaint: COUGH, CHEST PAIN Time Seen by Provider: 08/07/18 11:52 Notes: 48-year-old female who presents to the emergency department today with complaints of asthma with associated chest pain. Patient states she "always loses her voice when she has an asthma flareup" and she does have a raspy voice today. Patient states at 0530 this morning she developed this sharp chest pain which is unusual for her. Patient states she has had a URI for the last 2 weeks. Patient states she is out of her nebulizer medications so she has not used it. Patient complains of pain with coughing/breathing. Patient states she has a followup with her it compliance manager in two weeks. (JOLEEN GRACE) - Related Data Allergies/Adverse Reactions: No Known Allergies Allergy (Verified 08/07/18 10:50) Past Medical History - General Information source: Patient - Social History Smoking Status: Never Smoker Cigarette use (# per day): No Frequency of alcohol use: None Drug Abuse: None Lives with: Family Family History: Reviewed & Not Pertinent - Past Medical History Cardiac Medical History: Reports: Hx Hypertension Pulmonary Medical History: Reports: Hx Asthma Neurological Medical History: Reports: Hx Migraine - VERY RARE IN RECENT YEARS Past Surgical History: Reports: Hx Tubal Ligation - Immunizations Hx Diphtheria, Pertussis, Tetanus Vaccination: Yes <JOLEEN GRACE - Last Filed: 08/07/18 14:45> Review of Systems - Review of Systems Constitutional: No symptoms reported EENT: No symptoms reported Cardiovascular: No symptoms reported Respiratory: See HPI, Hurts to breathe - cough, Short of breath Gastrointestinal: No symptoms reported Genitourinary: No symptoms reported Female Genitourinary: No symptoms reported Musculoskeletal: No symptoms reported Skin: No symptoms reported Hematologic/Lymphatic: No symptoms reported Neurological/Psychological: No symptoms reported -: Yes All other systems reviewed and negative <JOLEEN GRACE - Last Filed: 08/07/18 14:45> Physical Exam <JOLEEN GRACE - Last Filed: 08/07/18 14:45> - Vital signs Vitals: Temp Pulse Resp BP Pulse Ox 97.4 F 92 18 141/95 H 95 08/07/18 11:06 08/07/18 11:06 08/07/18 11:06 08/07/18 11:06 08/07/18 11:06 - Notes Notes: Physical Exam: General: Alert, appears well. HEENT: Normocephalic. Atraumatic. PERRL. Extraocular movements intact. Oropharynx clear. Neck: Supple. Non-tender. Respiratory: No respiratory distress. Clear and equal breath sounds bilaterally. Anterior chest wall tenderness with palpation. Complains of pain when coughing/sneezing. Cardiovascular: Regular rate and rhythm. Abdominal: Normal Inspection. Non-tender. No distension. Normal Bowel Sounds. Back: Non-tender. No deformity or step off. Extremities: Moves all four extremities. Upper extremities: Normal inspection. Normal ROM. Lower extremities: Normal inspection. No edema. Normal ROM. Neurological: Normal cognition. AAOx4. Normal speech. Psychological: Normal affect. Normal Mood. Skin: Warm. Dry. Normal color. (JOLEEN GRACE) Course - Laboratory Result Diagrams: 08/07/18 11:52 08/07/18 11:52 <JOLEEN GRACE - Last Filed: 08/07/18 14:45> - Laboratory Result Diagrams: 08/07/18 11:52 08/07/18 11:52 - Diagnostic Test Radiology reviewed: Image reviewed, Reports reviewed - Chest x-ray shows stable cardiomegaly - EKG Interpretation by [place] EKG shows normal: Sinus rhythm, [place], Intervals, QRS Complexes. abnormal: ST-T Waves - Nonspecific diffuse T wave abnormalities Rate: Normal - 93 Rhythm: NSR P Waves: EMMA When compared to previous EKG there are: Changes noted - New T wave inversions in the lateral leads compared to September 2017. <NICOLE LONDONO - Last Filed: 08/07/18 15:29> - Re-evaluation Re-evalutation: 08/07/18 14:44 The patient's EKG changes compared to September were discussed with Dr. Patel. He states he is not concerned with that but felt that she did need to have a cardiology workup for her high blood pressure, enlarged heart, and the EKG changes. In reviewing this with the patient, she states she has been referred to a it compliance manager and has an appointment in about 2 weeks. She is not sure what the name of the practice or the it compliance manager is. (NICOLE LONDONO) - Vital Signs Vital signs: Temp Pulse Resp BP Pulse Ox 97.4 F 92 19 143/75 H 96 08/07/18 11:06 08/07/18 11:06 08/07/18 14:31 08/07/18 14:02 08/07/18 14:31 - Laboratory Laboratory results interpreted by me: 08/07/18 11:52 Creatinine 1.27 H Est GFR ( Amer) 55 L Est GFR (Non-Af Amer) 45 L Glucose 111 H Creatine Kinase 292 H Discharge <JOLEEN GRACE - Last Filed: 08/07/18 14:45> <NICOLE LONDONO - Last Filed: 08/07/18 15:29> - Discharge Clinical Impression: Viral upper respiratory tract infection with cough, Chest wall pain, Laryngitis, Hypertensive cardiomegaly Condition: Stable Disposition: HOME, SELF-CARE Additional Instructions: Chest Wall Pain Your chest pain has been diagnosed as coming from the chest wall. This is often caused by straining the muscles or joints in the chest during physical activity, direct trauma, coughing, or vigorous vomiting. Persons with arthritis are especially prone to this type of pain, due to inflammation of the cartilage joints near the breast bone. Occasionally, no cause can be found. Rest from strenuous physical activity. This kind of chest pain is usually made worse by movement of the chest. Depending on the symptoms, we may prescribe medicine for pain, muscle relaxation, and antiinflammatory effects. If the pain is new, and seems to be due to muscle strain, cold packs can help. Otherwise, apply gentle warmth to the painful area for 15 minutes every hour or two. You should contact the doctor immediately if things change. Further evaluation is needed if you develop a fever or cough, if the nature of the pain changes, or if you become short of breath. Bronchitis You have acute bronchitis. This disease is an infection or inflammation of the air passageways in your lungs. Symptoms usually include cough, low grade fever, shortness of breath, and wheezing. The cough usually persists for a couple of weeks. Most cases of bronchitis get better without antibiotics. We prescribe antibiotics when we believe bacteria are damaging your airways, or if there's high risk the bronchitis will worsen into pneumonia. Increase your fluid intake. A cool mist humidifier may make your lungs more comfortable. An expectorant (cough medicine that loosens phlegm) can help. If you smoke, STOP!!! Recovery from bronchitis can be somewhat slow, but you should see improvement within a day or two. Repeated episodes of bronchitis may result in lung damage -- for example, chronic bronchitis, recurrent pneumonias, or emphysema. Call the doctor if you develop increasing fever, shortness of breath, chest pain, bloody sputum, or otherwise worsen. If you have not improved at all after several days, contact the physician. Laryngitis You have laryngitis. This is an inflammation of the vocal cords which leads to inability to speak normally. Any irritation to the airway can cause la ryngitis. Causes include virus infection, smoke inhalation, allergy, or even trauma due to excessive talking or shouting. Rest your voice. Any vibration of the vocal cords increases and prolongs the swelling. Humidity is helpful, especially cool mist. Avoid dust, chemical fumes, and smoke. Avoid decongestants and antihistamines -- these will make you worse. You can expect to recover completely in a few days. See the physician if new symptoms develop, such as high fever, productive cough, shortness of breath, or if you do not improve within a few days. Take medications as prescribed. Take Robitussin-DM or Delsym type cough syrups to help control your cough. Drink plenty of fluids, rest your voice, get plenty of rest. Follow-up with your doctor this week for recheck if not improving. RETURN TO THE EMERGENCY ROOM IF ANY NEW OR WORSENING SYMPTOMS. Prescriptions: Albuterol Sulfate [Ventolin 0.083% Neb 2.5 mg/3 mL Ampul] 1 vial NEB Q4 PRN #50 vial PRN Reason: Benzonatate [Tessalon Perles 100 mg Capsule] 100 mg PO ASDIR PRN #30 capsule PRN Reason: Prednisone [Deltasone 10 mg Tablet] 10 mg PO ASDIR PRN #21 tablet PRN Reason: Referrals: HANNAH WARD MD [Primary Care Provider] - Follow up in 3-5 days Scribe Attestation: 08/07/18 15:29 I personally performed the services described in the documentation, reviewed and edited the documentation which was dictated to the scribe in my presence, and it accurately records my words and actions. (NICOLE LONDONO) Scribe Documentation - Scribe Written by Wily:: Wily Grubbs, 08/07/2018 1415 acting as scribe for :: Cordell <JOLEEN GRACE - Last Filed: 08/07/18 14:45>
[2018-08-07] MEDS ORDERED: METHYLPREDNISOLONE INJ 125 MG/2 ML SDV IV ONE (12:24)
[2018-08-07] MEDS ORDERED: BENZONATATE 100 MG CAPSULE PO ONE (12:24)
[2018-08-07] MEDS ORDERED: KETOROLAC TROMETHAMINE INJ/PF 30 MG/1 ML SDV IV ONE (12:24)
[2018-08-07 12:38] LABS: ALANINE AMINOTRANSFERASE 12 U/L (9-52); ALBUMIN 4.2 g/dL (3.5-5.0); ALKALINE PHOSPHATASE 66 U/L (38-126); ANION GAP 6 (5-19); ASPARTATE AMINO TRANSFERASE 22 U/L (14-36); BILIRUBIN,DIRECT 0.3 mg/dL (0.0-0.4); BILIRUBIN,TOTAL 0.9 mg/dL (0.2-1.3); BLOOD UREA NITROGEN 12 mg/dL (7-20); CALCIUM 8.7 mg/dL (8.4-10.2); CARBON DIOXIDE 28 mmol/L (22-30); CHLORIDE 107 mmol/L (98-107); CREATINE KINASE 292 U/L (30-135); GLUCOSE 111 mg/dL (75-110); POTASSIUM 3.6 mmol/L (3.6-5.0); SODIUM 141.2 mmol/L (137-145); TOTAL PROTEIN 7.7 g/dL (6.3-8.2)
--- NOTE | 2018-08-07 12:45 | RADIOLOGY REPORT (SQ) ---
EXAM DESCRIPTION: CHEST SINGLE VIEW COMPLETED DATE/TIME: 08/07/2018 12:37 pm REASON FOR STUDY: cp COMPARISON: 03/09/2018, 09/30/2017, 03/05/2017 EXAM PARAMETERS: NUMBER OF VIEWS: One view. TECHNIQUE: Single frontal radiographic view of the chest acquired. RADIATION DOSE: NA LIMITATIONS: Lordotic portable film with EKG leads over the chest FINDINGS: LUNGS AND PLEURA: No opacities, masses or pneumothorax. No pleural effusion. MEDIASTINUM AND HILAR STRUCTURES: No masses. Contour normal. HEART AND VASCULAR STRUCTURES: Stable moderate cardiomegaly. Normal vasculature. BONES: No acute findings. HARDWARE: None in the chest. OTHER: No other significant finding. IMPRESSION: Moderate cardiomegaly. No acute infiltrates TECHNICAL DOCUMENTATION: JOB ID: [id number] [employer]- All Rights Reserved Reading location - IP/workstation name: [email or web address]
[2018-08-07 12:58] LABS: CREATINE KINASE MB 1.49 ng/mL (<4.55); TROPONIN I 0.02 ng/mL
--- NOTE | 2018-08-07 13:07 | EKG REPORT ---
SEVERITY:- ABNORMAL ECG - SINUS RHYTHM RIGHT ATRIAL ABNORMALITY NONSPECIFIC T ABNORMALITIES, DIFFUSE LEADS BORDERLINE PROLONGED QT INTERVAL : Confirmed by: Mohan Mckeon MD 07-Aug-2018 13:05:51
[2018-08-07 15:57] VITALS: BP 141/96
== END 2018-08-07 15:57 | disposition home or self-care (01) ==
LOC: ER 10:44
DX: I11.9 Hypertensive heart disease without heart failure (principal); J06.9 Acute upper respiratory infection, unspecified; B97.89 Other viral agents as the cause of diseases classified elsewhere; R07.89 Other chest pain; J04.0 Acute laryngitis; R05 Cough; I10 Essential (primary) hypertension
CPT/HCPCS: 93005; 99285; 96374; 96375; 36415; 82553; 82550; 85025; 80053; 84484; 71045; 93010; J2930; J1885

== ENCOUNTER 2018-09-11 05:22 | Emergency (ER) | payer SELFPAY ==
--- NOTE | 2018-09-11 06:59 | EKG REPORT ---
SEVERITY:- ABNORMAL ECG - SINUS RHYTHM MARCUS, CONSIDER BIATRIAL ABNORMALITIES PROLONGED QT INTERVAL BORDERLINE T ABNORMALITIES, LAT LEADS : Confirmed by: Jarvis Rao 11-Sep-2018 06:58:57
--- NOTE | 2018-09-11 08:00 | RADIOLOGY REPORT (SQ) ---
Chest 2 view on 09/11/2018 at 7:48 AM CLINICAL INDICATION: Cough, chest pain COMPARISON: 08/07/2018 FINDINGS: Cardiomegaly is noted. New mild increased interstitial changes likely represents mild edema versus possibly atypical pneumonia. Hilar and mediastinal contours are within normal limits. No bony abnormality is noted. IMPRESSION: Findings most suggestive of new mild CHF.
--- NOTE | 2018-09-11 09:25 | ER Document Report ---
Entered by JOLEEN GRACE SCRIBE 09/11/18 0651 Acting as scribe for:NICOLE LONDONO MD ED General - General Chief Complaint: Cough Stated Complaint: COUGH Time Seen by Provider: 09/11/18 06:41 Primary Care Provider: HANNAH WARD MD [Primary Care Provider] - Follow up as needed COMFORT TRAN MD [ACTIVE STAFF] - 09/11/18 (Call today at to talk with Dr. Tran and schedule an appointment for an echocardiogram in the office this week.) Notes: 48-year-old female patient complaining of anterior chest pain when she breathes and coughs. She was seen here on 08/07/2018 with similar complaints, she was a little hoarse which is usual when she has asthma and bronchitis flareups. She was treated with prednisone Dosepak, Tessalon Perles, and given a prescription for albuterol for her nebulizer. She states she has 1-1/2 boxes of the albuterol nebulizer solution left. She states she has not improved at all since being seen 5 weeks ago. She states the Tessalon Perles and the prednisone did not help her cough or anterior chest wall pain at all. She states she has a follow-up appointment with her primary care provider next week, but was unable to see them because they were on vacation. She does take Percocet 10 mg tablets 4 times daily on a chronic basis. She does not have fever, her cough is nonproductive. She states she did not get a flu shot this year. TRAVEL OUTSIDE OF THE [place] IN LAST 30 DAYS: No - Related Data Allergies/Adverse Reactions: No Known Allergies Allergy (Verified 09/11/18 05:47) Past Medical History - General Information source: Patient, [facility] Records - Social History Smoking Status: Never Smoker Frequency of alcohol use: Occasional Drug Abuse: None Family History: Reviewed & Not Pertinent Patient has suicidal ideation: No Patient has homicidal ideation: No - Past Medical History Cardiac Medical History: Reports: Hx Hypertension Pulmonary Medical History: Reports: Hx Asthma Neurological Medical History: Reports: Hx Migraine - VERY RARE IN RECENT YEARS Musculoskeletal Medical History: Reports Hx Arthritis Past Surgical History: Reports: Hx Gynecologic Surgery - uterine ablasion, Hx Tubal Ligation - Immunizations Hx Diphtheria, Pertussis, Tetanus Vaccination: Yes Review of Systems - Review of Systems Constitutional: No symptoms reported EENT: No symptoms reported Cardiovascular: See HPI, Chest pain Respiratory: See HPI, Cough, Wheezing Gastrointestinal: No symptoms reported Genitourinary: No symptoms reported Female Genitourinary: No symptoms reported Musculoskeletal: No symptoms reported Skin: No symptoms reported Hematologic/Lymphatic: No symptoms reported Neurological/Psychological: No symptoms reported -: Yes All other systems reviewed and negative Physical Exam - Notes Notes: Physical Exam: General: Alert, appears well. HEENT: Normocephalic. Atraumatic. PERRL. Extraocular movements intact. Oropharynx clear. Neck: Supple. Non-tender. Respiratory: Mildly tachypneic, harsh sounding cough consistent with bronchitis. Clear and equal breath sounds bilaterally. Left anterior chest wall tenderness with palpation. Cardiovascular: Regular rate and rhythm. Abdominal: Normal Inspection. Non-tender. No distension. Normal Bowel Sounds. Back: Non-tender. No deformity or step off. Extremities: Moves all four extremities. Upper extremities: Normal inspection. Normal ROM. Lower extremities: Normal inspection. No edema. Normal ROM. Neurological: Normal cognition. AAOx4. Normal speech. Psychological: Appears depressed. Skin: Warm. Dry. Normal color. Course - Re-evaluation Re-evalutation: 09/11/18 08:45 Patient's chest x-ray suggest pulmonary vascular congestion versus atypical pneumonia. She is morbidly obese which makes reading these films difficult. I went to discuss this with the patient. I noted that with her laying on her side, she does seem to be a little tachypneic. She states that she has had a nonproductive cough. We will obtain blood work and check a CBC and a BNP to clarify the chest x-ray findings. 09/11/18 10:32 Patient's BNP is elevated at 1720. The CBC is unremarkable. I discussed the case with Dr. Tran, he prefers to do an echo in the office, and start the patient on Lasix 20 mg daily, and an KATIE inhibitor medication. On reviewing the findings with the patient, I find that she was once on hydrochlorthiazide for her blood pressure, Has not taken that in a long time and essentially does not treat her hypertension. - Laboratory Result Diagrams: 09/11/18 09:34 09/11/18 09:34 Laboratory results interpreted by me: 09/11/18 09/11/18 09/11/18 09:34 09:34 09:34 RDW 14.9 H Est GFR (Non-Af Amer) 50 L NT-Pro-B Natriuret Pep 1720 H - Diagnostic Test Radiology reviewed: Image reviewed, Reports reviewed - Chest x-ray shows enlarged heart, increased interstitial changes. Could be pulmonary vascular congestion, or atypical pneumonia. It is changed from a chest x-ray from 1 month ago. - EKG Interpretation by Me EKG shows normal: Sinus rhythm, [place], QRS Complexes, ST-T Waves. abnormal: Intervals - Prolonged QT interval Rate: Normal - 86 Rhythm: NSR P Waves: EMMA, LAE When compared to previous EKG there are: No significant change - Consults Dr. Tran Time consulted: 10:21 Consulted provider: follow-up in office - He requests I have the patient call his cell phone number to schedule an appointment time this week. Discharge - Discharge Clinical Impression: Bronchitis with bronchospasm, Pulmonary vascular congestion High blood pressure Qualifiers: Hypertension type: essential hypertension Qualified Code(s): I10 - Essential (primary) hypertension Condition: Stable Disposition: HOME, SELF-CARE Additional Instructions: Bronchitis with Bronchospasm (Wheezing) You have bronchitis with bronchospasm (wheezing). Sometimes people develop wheezing with a chest cold. This occurs either because of an underlying tendency toward asthma or because the virus itself irritates the bronchial tubes. This irritation causes cough, shortness of breath, and wheezing. Emergency treatment of bronchospasm may include adrenaline shots or bronchodilator aerosol. You may feel lightheaded and have a rapid pulse for an hour or two. Rest and get plenty of fluids. At home, we'll treat you with a bronchodilator inhaler. Corticosteroids may be required for some patients. Until you recover, avoid chemical fumes, dusts, pollens, and exercising in very cold or dry air. If you smoke, stop now! Most cases of bronchitis get better without antibiotics. We prescribe antibiotics when we believe bacteria are damaging your airways, or if there's high risk the bronchitis will worsen into pneumonia. Increase your fluid intake. A cool mist humidifier may make your lungs more comfortable. An expectorant (cough medicine that loosens phlegm) can help. Repeated episodes of bronchitis and bronchospasm may result in lung damage -- for example, chronic bronchitis, recurrent pneumonias, or emphysema. If you develop a fever, increased wheezing, chest pain, or severe shortness of breath, you should contact the doctor immediately. Congestive Heart Failure: Your chest X-ray and lab work suggests you may be having congestive heart failure (CHF) as a cause of your cough and shortness of breath. CHF occurs when the heart is unable to pump blood efficiently, leading to fluid buildup in the veins and lungs. Typical symptoms are swelling of the legs, shortness of breath on minor exertion, and fatigue. CHF is treated with salt restriction, medicine to eliminate excess water and salt from the body, and medication to help the heart contract more efficiently. Eliminate added salt and salty foods in your diet. Decrease your activity until excess fluid has been eliminated. It will also be helpful to raise the head of your bed so you can sleep more easily. Keep a daily record of your weight. This will help your physician monitor your progress. Once extra water has been eliminated, light aerobic exercise daily -- such as walking -- will be helpful (unless your physician has told you to restrict activity for other reasons). Be sure to follow up with the physician as instructed. Contact the doctor at once if you worsen in any way. Take the medications as prescribed. Get plenty of rest. Use your nebulizer as needed for wheezing. Take Robitussin-DM or Delsym DM to help suppress your cough. Call Dr. Tran today at to schedule an appointment this week to get an echocardiogram to look at your heart muscle function. Follow-up with Dr. Plummer as planned. RETURN TO THE EMERGENCY ROOM IF ANY NEW OR WORSENING SYMPTOMS. Prescriptions: Doxycycline Hyclate 100 mg PO BID #14 tablet. Furosemide [Lasix 20 mg Tablet] 20 mg PO DAILY #5 tablet Lisinopril 20 mg PO DAILY #30 tablet Prednisone [Deltasone 20 mg Tablet] 20 mg PO TID #15 tablet Referrals: HANNAH WARD MD [Primary Care Provider] - Follow up as needed COMFORT TRAN MD [ACTIVE STAFF] - 09/11/18 (Call today at to talk with Dr. Tran and schedule an appointment for an echocardiogram in the office this week.) I personally performed the services described in the documentation, reviewed and edited the documentation which was dictated to the scribe in my presence, and it accurately records my words and actions.
[2018-09-11 09:52] LABS: ABSOLUTE BASOPHILS # (AUTO) 0.1 10^3/uL (0.0-0.2); ABSOLUTE EOSINOPHILS # (AUTO) 0.1 10^3/uL (0.0-0.6); ABSOLUTE LYMPHOCYTES (AUTO) 2.3 10^3/uL (0.5-4.7); ABSOLUTE MONOCYTES (AUTO) 0.5 10^3/uL (0.1-1.4); ABSOLUTE NEUT (AUTO) 3.7 10^3/uL (1.7-8.2); BASOPHILS % (AUTO) 0.8 % (0-2); EOSINOPHILS % (AUTO) 1.6 % (0-6); LYMPHOCYTES % (AUTO) 34.1 % (13-45); MEAN CORPUSCULAR HEMOGLOBIN 28.4 pg (27.0-33.4); MEAN CORPUSCULAR HGB CONC 32.4 g/dL (32.0-36.0); MEAN CORPUSCULAR VOLUME 87 fl (80-97); MONOCYTES % (AUTO) 7.2 % (3-13); PLATELET COUNT 300 10^3/uL (150-450); RED BLOOD COUNT 4.58 10^6/uL (3.72-5.28); RED CELL DISTRIBUTION WIDTH 14.9 % (11.5-14.0); SEGMENTED NEUTROPHILS % (AUTO) 56.3 % (42-78); TOTAL CELLS COUNTED % (AUTO) 100 %; WHITE BLOOD COUNT 6.6 10^3/uL (4.0-10.5)
[2018-09-11 10:07] LABS: ALANINE AMINOTRANSFERASE 10 U/L (9-52); ALBUMIN 4.2 g/dL (3.5-5.0); ALKALINE PHOSPHATASE 62 U/L (38-126); ANION GAP 8 (5-19); ASPARTATE AMINO TRANSFERASE 16 U/L (14-36); BILIRUBIN,DIRECT 0.2 mg/dL (0.0-0.4); BILIRUBIN,TOTAL 0.7 mg/dL (0.2-1.3); BLOOD UREA NITROGEN 10 mg/dL (7-20); CALCIUM 9.3 mg/dL (8.4-10.2); CARBON DIOXIDE 29 mmol/L (22-30); CHLORIDE 104 mmol/L (98-107); GLUCOSE 94 mg/dL (75-110); POTASSIUM 4.1 mmol/L (3.6-5.0); SODIUM 141.2 mmol/L (137-145); TOTAL PROTEIN 7.1 g/dL (6.3-8.2)
[2018-09-11 10:55] VITALS: BP 150/104
== END 2018-09-11 10:58 | disposition home or self-care (01) ==
LOC: ER 05:22
DX: J45.909 Unspecified asthma, uncomplicated (principal); R09.89 Other specified symptoms and signs involving the circulatory and respiratory systems; R05 Cough; R07.9 Chest pain, unspecified; I10 Essential (primary) hypertension; Z79.52 Long term (current) use of systemic steroids; Z79.899 Other long term (current) drug therapy
CPT/HCPCS: 36415; 71046; 80053; 83880; 85025; 93005; 93010; 99284

== ENCOUNTER 2019-02-02 21:41 | Emergency (ER) | payer SELFPAY ==
[2019-02-02] MEDS ORDERED: ACETAMINOPHEN 325 MG TABLET PO ONE (23:55)
[2019-02-03] MEDS ORDERED: ONDANSETRON HCL INJ/PF 4 MG/2 ML SDV IV ONE (02:11)
[2019-02-03] MEDS ORDERED: MORPHINE SULFATE 10 MG/ML INJ IV ONE (02:11)
[2019-02-03 02:43] LABS: ABSOLUTE BASOPHILS # (AUTO) 0.1 10^3/uL (0.0-0.2); ABSOLUTE EOSINOPHILS # (AUTO) 0.2 10^3/uL (0.0-0.6); ABSOLUTE LYMPHOCYTES (AUTO) 2.3 10^3/uL (0.5-4.7); ABSOLUTE MONOCYTES (AUTO) 0.4 10^3/uL (0.1-1.4); ABSOLUTE NEUT (AUTO) 6.6 10^3/uL (1.7-8.2); EOSINOPHILS % (AUTO) 2.3 % (0-6); HEMATOCRIT 40.5 % (36.0-47.0); HEMOGLOBIN 13.1 g/dL (12.0-15.5); MEAN CORPUSCULAR HEMOGLOBIN 28.3 pg (27.0-33.4); MEAN CORPUSCULAR HGB CONC 32.3 g/dL (32.0-36.0); MEAN CORPUSCULAR VOLUME 88 fl (80-97); MONOCYTES % (AUTO) 3.9 % (3-13); PLATELET COUNT 299 10^3/uL (150-450); RED BLOOD COUNT 4.61 10^6/uL (3.72-5.28); RED CELL DISTRIBUTION WIDTH 14.1 % (11.5-14.0); SEGMENTED NEUTROPHILS % (AUTO) 68.8 % (42-78); TOTAL CELLS COUNTED % (AUTO) 100 %; WHITE BLOOD COUNT 9.7 10^3/uL (4.0-10.5)
[2019-02-03 02:52] LABS: ALANINE AMINOTRANSFERASE 15 U/L (9-52); ALBUMIN 4.3 g/dL (3.5-5.0); ALKALINE PHOSPHATASE 61 U/L (38-126); ANION GAP 10 (5-19); ASPARTATE AMINO TRANSFERASE 25 U/L (14-36); BILIRUBIN,DIRECT 0.3 mg/dL (0.0-0.4); BILIRUBIN,TOTAL 0.4 mg/dL (0.2-1.3); BLOOD UREA NITROGEN 12 mg/dL (7-20); CALCIUM 9.3 mg/dL (8.4-10.2); CARBON DIOXIDE 27 mmol/L (22-30); CHLORIDE 103 mmol/L (98-107); GLUCOSE 103 mg/dL (75-110); LIPASE 112.4 U/L (23-300); POTASSIUM 4.3 mmol/L (3.6-5.0); SODIUM 139.9 mmol/L (137-145)
[2019-02-03 03:06] LABS: APPEARANCE,URINE CLEAR; BILIRUBIN,URINE NEGATIVE (NEGATIVE); COLOR,URINE YELLOW; GLUCOSE, URINE NEGATIVE (NEGATIVE)
[2019-02-03 03:07] LABS: KETONES,URINE NEGATIVE (NEGATIVE); LEUKOCYTE ESTERASE,URINE NEGATIVE (NEGATIVE); NITRITE,URINE NEGATIVE (NEGATIVE); PROTEIN,URINE NEGATIVE (NEGATIVE); URINE SPECIFIC GRAVITY 1.026; UROBILINOGEN,URINE NEGATIVE mg/dL (<2.0)
--- NOTE | 2019-02-03 04:12 | RADIOLOGY REPORT (SQ) ---
Ultrasound pelvis transvaginal on 02/03/2019 at 2:56 AM CLINICAL INDICATION: Left lower quadrant pain, history of fibroids COMPARISON: 11/24/2015 FINDINGS: Multiple sonographic images are obtained throughout the pelvis by transvaginal approach, both transverse and sagittal images are obtained. Uterus measures approximately 8.4 x 4.3 x 5.1 cm. Nabothian cysts are noted in the cervix. Endometrial stripe measures 8 mm which is within normal limits for premenopausal female. There is large subserosal fibroid along the right aspect of the uterus measuring up to 2.5 x 3.2 x 2.8 cm. Small intramural hypoechoic fibroid that may abut the endometrium measures 1.4 cm in greatest diameter. Neither ovary is visualized. No adnexal mass or fluid collection is noted. IMPRESSION: Multi fibroid uterus again noted, otherwise essentially unremarkable.
--- NOTE | 2019-02-03 04:34 | ER Document Report ---
ED GI/ <CARMEN RIVERA - Last Filed: 02/03/19 06:40> - General Mode of Arrival: Ambulatory Information source: Patient TRAVEL OUTSIDE OF THE [place] IN LAST 30 DAYS: No - HPI Patient complains to provider of: Abdominal pain Location: LLQ Vaginal bleeding (Compared to normal period): None Associated symptoms: Diarrhea. denies: Vomiting Exacerbated by: Denies Relieved by: Denies Similar symptoms previously: No Recently seen / treated by doctor: No <TEAGAN HERNANDEZ - Last Filed: 02/03/19 18:08> - General Chief Complaint: Lower Abdominal Pain Stated Complaint: STOMACH PAIN Time Seen by Provider: 02/03/19 00:47 Primary Care Provider: WILL CASON MD [ACTIVE STAFF] - Follow up in 3-5 days HANNAH WARD MD [Primary Care Provider] - 02/05/19 - Related Data Allergies/Adverse Reactions: No Known Allergies Allergy (Verified 09/11/18 05:47) Past Medical History - Social History Smoking Status: Never Smoker Frequency of alcohol use: None Drug Abuse: None Family History: Reviewed & Not Pertinent Patient has suicidal ideation: No Patient has homicidal ideation: No - Past Medical History Cardiac Medical History: Reports: Hx Congestive Heart Failure, Hx Hypertension Denies: Hx Coronary Artery Disease, Hx Heart Attack Pulmonary Medical History: Reports: Hx Asthma Denies: Hx Bronchitis, Hx COPD, Hx Pneumonia Neurological Medical History: Reports: Hx Migraine - VERY RARE IN RECENT YEARS. Denies: Hx Cerebrovascular Accident, Hx Seizures Renal/ Medical History: Denies: Hx Peritoneal Dialysis Musculoskeletal Medical History: Reports Hx Arthritis Past Surgical History: Reports: Hx Gynecologic Surgery - uterine ablasion, Hx Tubal Ligation - Immunizations Hx Diphtheria, Pertussis, Tetanus Vaccination: Yes <TEAGAN HERNANDEZ - Last Filed: 02/03/19 18:08> Review of Systems - Review of Systems Constitutional: No symptoms reported EENT: No symptoms reported Cardiovascular: No symptoms reported Respiratory: No symptoms reported Gastrointestinal: Abdominal pain, Diarrhea. denies: Nausea, Vomiting Genitourinary: No symptoms reported Female Genitourinary: No symptoms reported Musculoskeletal: No symptoms reported Skin: No symptoms reported Hematologic/Lymphatic: No symptoms reported Neurological/Psychological: No symptoms reported -: Yes All other systems reviewed and negative <TEAGAN HERNANDEZ - Last Filed: 02/03/19 18:08> Physical Exam - Vital signs Interpretation: Normal - General General appearance: Appears well, Alert, Other - Morbid obesity In distress: Mild - HEENT Head: Normocephalic, Atraumatic Eyes: Normal Pupils: PERRL - Respiratory Respiratory status: No respiratory distress Chest status: Nontender Breath sounds: Normal Chest palpation: Normal - Cardiovascular Rhythm: Regular Heart sounds: Normal auscultation Murmur: No - Abdominal Inspection: Normal Distension: No distension Bowel sounds: Normal Tenderness: Tender, Guarding. No: Rebound Organomegaly: No organomegaly - Back Back: Normal, Nontender - Extremities General upper extremity: Normal inspection, Nontender, Normal color, Normal ROM, Normal temperature General lower extremity: Normal inspection, Nontender, Normal color, Normal ROM, Normal temperature, Normal weight bearing. No: Kenton's sign - Neurological Neuro grossly intact: Yes Cognition: Normal Orientation: AAOx4 David Coma Scale Eye Opening: Spontaneous [place] Coma Scale Verbal: Oriented [place] Coma Scale Motor: Obeys Commands David Coma Scale Total: 15 Speech: Normal Motor strength normal: LUE, RUE, LLE, RLE Sensory: Normal - Psychological Associated symptoms: Normal affect, Normal mood - Skin Skin Temperature: Warm Skin Moisture: Dry Skin Color: Normal <TEAGAN HERNANDEZ - Last Filed: 02/03/19 18:08> - Vital signs Vitals: Temp Pulse Resp BP Pulse Ox 97.5 F 72 16 136/83 H 99 02/02/19 22:34 02/02/19 22:34 02/02/19 22:34 02/02/19 22:34 02/02/19 22:34 Course - Laboratory Result Diagrams: 02/03/19 01:54 02/03/19 01:54 <CARMEN RIVERA - Last Filed: 02/03/19 06:40> - Laboratory Result Diagrams: 02/03/19 01:54 02/03/19 01:54 - Diagnostic Test Radiology reviewed: Reports reviewed <TEAGAN HERNANDEZ Last Filed: 02/03/19 18:08> - Re-evaluation Re-evalutation: 02/03/19 06:40 Patient was initially seen by Dr. Hernandez and he checked out the patient to me pending results of CT scan. He said if CT scan is negative patient be discharged home. I did reevaluate patient and informed her that CT scan is negative. Still some pain to palpation in the left lower quadrant of her abdomen. This she tells me this pain is actually ongoing for over a month. She has been seen by her RN APPEALS about the fibroids. They told her that he may have to do hysterectomy if continues to worsen. She has not yet seen a GI doctor. She was told once that she may have had a bacterial infection of the bowel and therefore she was placed on antibiotics but this did not help. She has not had any nausea or vomiting. She has had some intermittent diarrhea. She has had no fevers. Currently on exam her abdomen is benign. She does have some pain to palpation of the left lower quadrant but she does not have any rigidity to her abdomen. Her white count is normal. Ultrasound shows a fibroid uterus. Her CT scan is unremarkable. At this time I feel the patient safe to be discharged home to follow back up with her primary care doctor. I will refer her to GI for follow-up as well due to her ongoing pain to see if they recommend colonoscopy. Patient encouraged to return to ER if she has fevers, vomiting, or worsening pain. Patient agrees with plan and will be discharged home. (CARMEN RIVERA) 02/03/19 04:39 Patient still having pain after administration of morphine. We will go ahead and order CT of the abdomen and pelvis with IV contrast. 02/03/19 05:05 Patient care was transitioned to Dr. Carmen Rievra at the end of my shift to follow-up on the results of the abdominal/pelvic CT done with IV contrast. If the CT is negative patient can be discharged home. Patient said that he has plenty of pain medicine at home. (EVARISTO,TEAGAN C) - Vital Signs Vital signs: Temp Pulse Resp BP Pulse Ox 97.7 F 73 18 134/98 H 100 02/03/19 06:50 02/03/19 06:50 02/03/19 06:50 02/03/19 06:50 02/03/19 06:50 - Laboratory Laboratory results interpreted by me: 02/03/19 02/03/19 01:54 01:54 RDW 14.1 H Est GFR (Non-Af Amer) 55 L - Diagnostic Test Radiology results interpreted by me: 02/03/19 04:38 Pelvic ultrasound showed fibroids. (TEAGAN HERNANDEZ) Discharge <CARMEN RIVERA - Last Filed: 02/03/19 06:40> <TEAGAN HERNANDEZ - Last Filed: 02/03/19 18:08> - Discharge Clinical Impression: Abdominal pain Qualifiers: Abdominal location: left lower quadrant Qualified Code(s): R10.32 - Left lower quadrant pain Uterine fibroid Qualifiers: Uterine leiomyoma location: unspecified location Qualified Code(s): D25.9 - Leiomyoma of uterus, unspecified Condition: Stable Disposition: HOME, SELF-CARE Additional Instructions: Your CT scan did not show any concerning findings. Your blood work is unremarkable. The exact cause of your recurrent abdominal pain is not 100% clear. 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 I will refer you to the GI physician, Dr. Cason, for further evaluation as you may eventually need a colonoscopy to further investigate to see if there is another cause of your recurring pain. Please return to the ER for fevers, vomiting, bloody stools, or feel like you are worsening. Referrals: HANNAH WARD MD [Primary Care Provider] - 02/05/19 WILL CASON MD [ACTIVE STAFF] - Follow up in 3-5 days
[2019-02-03] MEDS ORDERED: HYDROMORPHONE HCL INJ/PF 2 MG/ML AMPULE IV ONE (04:49)
--- NOTE | 2019-02-03 06:05 | RADIOLOGY REPORT (SQ) ---
EXAM DESCRIPTION: CT ABDOMEN PELVIS WITH IV CONTRAST COMPLETED DATE/TME: 02/03/2019 04:28 CLINICAL HISTORY: 48 years Female, LLQ abdominal pain Comparison: None. Technique: IV contrast. Coronal and sagittal reformat. This exam was performed according to our departmental dose-optimization program, which includes automated exposure control, adjustment of the mA and/or kV according to patient size and/or use of iterative reconstruction technique. [facility]: Dose Right [facility]: CareDose [facility]: Dose Right [facility]: Teradose 4D [facility]: [employer] LIMITATIONS: None Findings: No ascites. No pneumoperitoneum. Normal appendix. No gross evidence of gallbladder inflammation or hepatobiliary obstruction. No bowel obstruction. No hydronephrosis or hydroureter. No renal/ureteral stone. No evidence of abdominal aortic aneurysm. Inferior thorax, liver, gallbladder, pancreas, spleen, adrenals, renal system, gastrointestinal tract, pelvic organs, lymphatics, vasculature, and musculoskeleton appear otherwise unremarkable. IMPRESSION: No acute findings.
[2019-02-03 06:51] VITALS: BP 134/98
== END 2019-02-03 07:03 | disposition home or self-care (01) ==
LOC: ER 21:41
DX: D25.2 Subserosal leiomyoma of uterus (principal); D25.1 Intramural leiomyoma of uterus; R10.32 Left lower quadrant pain; R19.7 Diarrhea, unspecified; I10 Essential (primary) hypertension; J45.909 Unspecified asthma, uncomplicated
CPT/HCPCS: 99284; 96374; 96375; 36415; 83690; 84703; 85025; 80053; 81001; 76830; 93976; 74177; J2270; J1170; J2405

== ENCOUNTER 2019-08-26 04:53 | Emergency (ER) | payer SELFPAY ==
[2019-08-26 05:34] LABS: ABSOLUTE BASOPHILS # (AUTO) 0.1 10^3/uL (0.0-0.2); ABSOLUTE EOSINOPHILS # (AUTO) 0.4 10^3/uL (0.0-0.6); ABSOLUTE LYMPHOCYTES (AUTO) 2.6 10^3/uL (0.5-4.7); ABSOLUTE MONOCYTES (AUTO) 0.9 10^3/uL (0.1-1.4); ABSOLUTE NEUT (AUTO) 6.3 10^3/uL (1.7-8.2); BASOPHILS % (AUTO) 0.9 % (0-2); EOSINOPHILS % (AUTO) 3.5 % (0-6); HEMATOCRIT 39.3 % (36.0-47.0); HEMOGLOBIN 12.9 g/dL (12.0-15.5); LYMPHOCYTES % (AUTO) 25.2 % (13-45); MEAN CORPUSCULAR HEMOGLOBIN 28.6 pg (27.0-33.4); MEAN CORPUSCULAR HGB CONC 32.7 g/dL (32.0-36.0); MEAN CORPUSCULAR VOLUME 87 fl (80-97); MONOCYTES % (AUTO) 9.1 % (3-13); PLATELET COUNT 295 10^3/uL (150-450); RED BLOOD COUNT 4.49 10^6/uL (3.72-5.28); SEGMENTED NEUTROPHILS % (AUTO) 61.3 % (42-78); TOTAL CELLS COUNTED % (AUTO) 100 %; WHITE BLOOD COUNT 10.2 10^3/uL (4.0-10.5)
[2019-08-26 05:39] LABS: APPEARANCE,URINE SLIGHTLY-CLOUDY; BILIRUBIN,URINE NEGATIVE (NEGATIVE); COLOR,URINE YELLOW; GLUCOSE, URINE NEGATIVE (NEGATIVE); KETONES,URINE NEGATIVE (NEGATIVE); LEUKOCYTE ESTERASE,URINE NEGATIVE (NEGATIVE); NITRITE,URINE NEGATIVE (NEGATIVE); PROTEIN,URINE 30 mg/dL (NEGATIVE); URINE SPECIFIC GRAVITY 1.025; UROBILINOGEN,URINE NEGATIVE mg/dL (<2.0)
[2019-08-26 05:58] LABS: ALBUMIN 3.8 g/dL (3.5-5.0); ALKALINE PHOSPHATASE 80 U/L (38-126); ANION GAP 8 (5-19); ASPARTATE AMINO TRANSFERASE 27 U/L (14-36); BILIRUBIN,TOTAL 0.8 mg/dL (0.2-1.3); BLOOD UREA NITROGEN 9 mg/dL (7-20); CALCIUM 8.8 mg/dL (8.4-10.2); CARBON DIOXIDE 29 mmol/L (22-30); CHLORIDE 104 mmol/L (98-107); GLUCOSE 103 mg/dL (75-110); POTASSIUM 3.7 mmol/L (3.6-5.0)
--- NOTE | 2019-08-26 08:31 | ER Document Report ---
ED General - General Chief Complaint: Diarrhea Stated Complaint: COUGH Time Seen by Provider: 08/26/19 08:22 Primary Care Provider: HANNAH WARD MD [Primary Care Provider] - Follow up as needed Notes: CHIEF COMPLAINT: Cough, sore throat for 2 days HPI: 49-year-old female presenting to the emergency department complaining of cough and sore throat for 2 days as well as drainage from both eyes. States her nephew she was recently in contact with had similar symptoms. Denies chest pain shortness of breath. Patient complains of generalized myalgia. Has not had nausea vomiting or abdominal pain. No chest pain. No shortness of breath ROS: See HPI - all other systems were reviewed and are otherwise negative Constitutional: no fever Eyes: + drainage, no blurred vision ENT: no runny nose, + sore throat Cardiovascular: no chest pain Resp: no SOB, + cough GI: no vomiting, + diarrhea, no abdominal pain : no dysuria Integumentary: no rash Allergy: no hives Musculoskeletal: no extremity pain or swelling Neurological: no numbness/tingling, no weakness MEDICATIONS: I agree with the patient medications as charted by the RN. ALLERGIES: I agree with the allergies as charted by the RN. PAST MEDICAL HISTORY/PAST SURGICAL HISTORY: Reviewed and agree as charted by RN. SOCIAL HISTORY: Reviewed and agree as charted by RN. FAMILY HISTORY: No significant familial comorbid conditions directly related to patient complaint EXAM: Reviewed vital signs as charted by RN. CONSTITUTIONAL: Alert and oriented and responds appropriately to questions. Well-appearing; well-nourished, mild distress secondary to discomfort HEAD: Normocephalic; atraumatic EYES: PERRL; Conjunctivae injected bilateral eyes, sclerae non-icteric. No visible periorbital erythema. ENT: normal nose; no rhinorrhea; moist mucous membranes; pharynx without lesions noted, no uvula edema or deviation, no tonsillar hypertrophy, phonation normal NECK: Supple without meningismus; non-tender; no cervical lymphadenopathy, no masses CARD: RRR; no murmurs, no clicks, no rubs, no gallops; symmetric distal pulses RESP: Normal chest excursion without splinting or tachypnea; breath sounds clear and equal bilaterally; no wheezes, no rhonchi, no rales, pulse oximetry 96% on room air not hypoxic ABD/GI: Normal bowel sounds; non-distended; soft, non-tender, no rebound, no guarding; no palpable organomegaly or masses. BACK: The back appears normal and is non-tender to palpation, there is no CVA tenderness EXT: Normal ROM in all joints; non-tender to palpation; no cyanosis, no effusions, no edema SKIN: Normal color for age and race; warm; dry; good turgor; no acute lesions noted NEURO: Moves all extremities equally; Motor and sensory function intact PSYCH: The patient's mood and manner are appropriate. Grooming and personal hygiene are appropriate. MDM: 49-year-old female presenting for upper respiratory symptoms over the last 2 days recently with a nephew with similar symptoms. Has a likely conjunctivitis. Will obtain flu strep and chest x-ray TRAVEL OUTSIDE OF THE [place] IN LAST 30 DAYS: No - Related Data Allergies/Adverse Reactions: No Known Allergies Allergy (Verified 09/11/18 05:47) Home Medications: baclofen. ASA. lisinopril. oxycodone Past Medical History - Social History Smoking Status: Never Smoker Chew tobacco use (# tins/day): No Frequency of alcohol use: None Drug Abuse: None Family History: Reviewed & Not Pertinent Patient has suicidal ideation: No Patient has homicidal ideation: No - Past Medical History Cardiac Medical History: Reports: Hx Congestive Heart Failure, Hx Hypertension Denies: Hx Coronary Artery Disease, Hx Heart Attack Pulmonary Medical History: Reports: Hx Asthma Denies: Hx Bronchitis, Hx COPD, Hx Pneumonia Neurological Medical History: Reports: Hx Migraine - VERY RARE IN RECENT YEARS. Denies: Hx Cerebrovascular Accident, Hx Seizures Renal/ Medical History: Denies: Hx Peritoneal Dialysis Musculoskeletal Medical History: Reports Hx Arthritis Past Surgical History: Reports: Hx Gynecologic Surgery - uterine ablasion, Hx Tubal Ligation - Immunizations Hx Diphtheria, Pertussis, Tetanus Vaccination: Yes Physical Exam - Vital signs Vitals: Temp Pulse Resp BP Pulse Ox 98.1 F 91 17 150/90 H 96 08/26/19 04:59 08/26/19 04:59 08/26/19 04:59 08/26/19 04:59 08/26/19 04:59 Course - Re-evaluation Re-evalutation: 08/26/19 09:56 Strep and flu are both negative. Will treat for conjunctivitis. Still likely viral etiology. Discussed with the patient - Vital Signs Vital signs: Temp Pulse Resp BP Pulse Ox 98.1 F 91 17 150/90 H 96 08/26/19 04:59 08/26/19 04:59 08/26/19 04:59 08/26/19 04:59 08/26/19 04:59 - Laboratory Result Diagrams: 08/26/19 05:15 08/26/19 05:15 Laboratory results interpreted by me: 08/26/19 08/26/19 05:15 05:15 Creatinine 1.40 H Est GFR ( Amer) 49 L Est GFR (MDRD) Non-Af 40 L Urine Protein 30 H Urine Blood MODERATE H Discharge - Discharge Clinical Impression: Influenza-like illness Conjunctivitis, acute, bilateral Qualifiers: Acute conjunctivitis type: unspecified Qualified Code(s): H10.33 - Unspecified acute conjunctivitis, bilateral Condition: Stable Disposition: HOME, SELF-CARE Instructions: Conjunctivitis, Allergic Additional Instructions: Motrin Tylenol consistently for body ache and discomfort. Hydrate well at home. Use the antibiotic drops for the conjunctivitis. Follow-up with your primary care provider for reevaluation of symptoms call for appointment. Your influenza, strep tests today did not show acute abnormalities. Your lab work did not show acute emergent abnormalities. Your chest x-ray showed a mildly enlarged heart but no infiltrate or pneumonia Prescriptions: Polymyxin B Sulf/Trimethoprim [Polytrim Eye Drops] 1 drop OU Q3H 5 Days #10 ml Referrals: HANNAH WARD MD [Primary Care Provider] - Follow up as needed
[2019-08-26 09:38] LABS: A TYPE INFLUENZA AG NEGATIVE (NEGATIVE); B INFLUENZA AG NEGATIVE (NEGATIVE)
--- NOTE | 2019-08-26 09:48 | RADIOLOGY REPORT (SQ) ---
EXAM DESCRIPTION: CHEST 2 VIEWS COMPLETED DATE/TIME: 08/26/2019 9:10 am REASON FOR STUDY: cough COMPARISON: Two-view chest 09/11/2008 AP chest 03/09/2018 EXAM PARAMETERS: NUMBER OF VIEWS: two views TECHNIQUE: Digital Frontal and Lateral radiographic views of the chest acquired. RADIATION DOSE: NA LIMITATIONS: none FINDINGS: LUNGS AND PLEURA: No opacities, masses or pneumothorax. No pleural effusion. MEDIASTINUM AND HILAR STRUCTURES: No masses or contour abnormalities. HEART AND VASCULAR STRUCTURES: Stable mild cardiomegaly BONES: No acute findings. HARDWARE: None in the chest. OTHER: No other significant finding. IMPRESSION: Mild cardiomegaly. No acute findings TECHNICAL DOCUMENTATION: JOB ID: [id number] [employer]- All Rights Reserved Reading location - IP/workstation name: [email or web address]
[2019-08-26 10:16] VITALS: BP 143/89
== END 2019-08-26 10:16 | disposition home or self-care (01) ==
LOC: ER 04:53
DX: J11.1 Influenza due to unidentified influenza virus with other respiratory manifestations (principal); H10.33 Unspecified acute conjunctivitis, bilateral; R05 Cough; M79.10 Myalgia, unspecified site; R19.7 Diarrhea, unspecified; I10 Essential (primary) hypertension; J45.909 Unspecified asthma, uncomplicated; Z79.899 Other long term (current) drug therapy; Z79.891 Long term (current) use of opiate analgesic; Z79.82 Long term (current) use of aspirin
CPT/HCPCS: 36415; 71046; 80053; 81001; 85025; 87070; 87804; 87880; 99284

== ENCOUNTER 2020-03-19 09:12 | Emergency (ER) | payer SELFPAY ==
[2020-03-19] MEDS ORDERED: NORMAL SALINE 1000 ML 1,000 ML IV ONE (09:42)
[2020-03-19] MEDS ORDERED: KETOROLAC TROMETHAMINE INJ/PF 30 MG/1 ML SDV IV ONE (09:43)
[2020-03-19 10:05] LABS: ABSOLUTE BASOPHILS # (AUTO) 0.1 10^3/uL (0.0-0.2); ABSOLUTE EOSINOPHILS # (AUTO) 0.2 10^3/uL (0.0-0.6); ABSOLUTE LYMPHOCYTES (AUTO) 1.8 10^3/uL (0.5-4.7); ABSOLUTE MONOCYTES (AUTO) 0.4 10^3/uL (0.1-1.4); ABSOLUTE NEUT (AUTO) 5.2 10^3/uL (1.7-8.2); BASOPHILS % (AUTO) 1.4 % (0-2); HEMATOCRIT 42.4 % (36.0-47.0); HEMOGLOBIN 13.7 g/dL (12.0-15.5); MEAN CORPUSCULAR HEMOGLOBIN 29.1 pg (27.0-33.4); MEAN CORPUSCULAR HGB CONC 32.4 g/dL (32.0-36.0); MEAN CORPUSCULAR VOLUME 90 fl (80-97); MONOCYTES % (AUTO) 4.8 % (3-13); PLATELET COUNT 269 10^3/uL (150-450); RED BLOOD COUNT 4.72 10^6/uL (3.72-5.28); RED CELL DISTRIBUTION WIDTH 14.2 % (11.5-14.0); SEGMENTED NEUTROPHILS % (AUTO) 67.8 % (42-78); TOTAL CELLS COUNTED % (AUTO) 100 %; WHITE BLOOD COUNT 7.7 10^3/uL (4.0-10.5)
[2020-03-19 10:32] LABS: ALBUMIN 4.4 g/dL (3.5-5.0); ALKALINE PHOSPHATASE 70 U/L (38-126); ANION GAP 10 (5-19); ASPARTATE AMINO TRANSFERASE 18 U/L (14-36); BILIRUBIN,TOTAL 0.8 mg/dL (0.2-1.3); BLOOD UREA NITROGEN 11 mg/dL (7-20); CALCIUM 10.6 mg/dL (8.4-10.2); CARBON DIOXIDE 26 mmol/L (22-30); CHLORIDE 105 mmol/L (98-107); GLUCOSE 117 mg/dL (75-110); POTASSIUM 3.7 mmol/L (3.6-5.0); TOTAL PROTEIN 8.1 g/dL (6.3-8.2)
[2020-03-19 10:41] LABS: APPEARANCE,URINE CLEAR; BILIRUBIN,URINE NEGATIVE (NEGATIVE); COLOR,URINE YELLOW; GLUCOSE, URINE NEGATIVE (NEGATIVE); KETONES,URINE NEGATIVE (NEGATIVE); LEUKOCYTE ESTERASE,URINE NEGATIVE (NEGATIVE); NITRITE,URINE NEGATIVE (NEGATIVE); PROTEIN,URINE 30 mg/dL (NEGATIVE); URINE SPECIFIC GRAVITY 1.014; UROBILINOGEN,URINE NEGATIVE mg/dL (<2.0)
--- NOTE | 2020-03-19 11:24 | RADIOLOGY REPORT (SQ) ---
EXAM DESCRIPTION: CT ABD/PELVIS NO ORAL OR IV IMAGES COMPLETED DATE/TIME: 03/19/2020 11:01 am REASON FOR STUDY: llq PAIN COMPARISON: 02/03/2019 TECHNIQUE: CT scan of the abdomen and pelvis performed without intravenous or oral contrast. Images reviewed with lung, soft tissue, and bone windows. Reconstructed coronal and sagittal MPR images revi ewed. All images stored on PACS. All CT scanners at this facility use dose modulation, iterative reconstruction, and/or weight based d osing when appropriate to reduce radiation dose to as low as reasonably achievable (ALARA). [facility]: Dose Right [facility]: CareDose [facility]: Dose Right [facility]: Teradose 4D [facility]: Smart DrFirst RADIATION DOSE: CT Rad equipment meets quality standard of care and radiation dose reduction techniq ues were employed. CTDIvol: 19.1 mGy. DLP: 1032 mGy-cm.mGy. LIMITATIONS: None. FINDINGS: LOWER CHEST: No significant findings. No nodules or infiltrates. NON-CONTRASTED LIVER, SPLEEN, ADRENALS: Evaluation limited by lack of IV contrast. No identified sign ificant masses. PANCREAS: No masses. No peripancreatic inflammatory changes. GALLBLADDER: No identified stones by CT criteria. No inflammatory changes to suggest cholecystitis. RIGHT KIDNEY AND URETER: No suspicious masses. Assessment limited by lack of IV contrast. No signif icant calcifications. No hydronephrosis or hydroureter. LEFT KIDNEY AND URETER: No suspicious masses. Assessment limited by lack of IV contrast. No signifi cant calcifications. No hydronephrosis or hydroureter. AORTA AND RETROPERITONEUM: No aneurysm. No retroperitoneal masses or adenopathy. BOWEL AND PERITONEAL CAVITY: No obvious masses or inflammatory changes. No free fluid. APPENDIX: Normal. PELVIS, BLADDER, AND ABDOMINAL WALL:Re- demonstration of a multi fibroid uterus. The bladder is norm al. No masses or pelvic lymphadenopathy. BONES: Degenerative changes are seen of the hips. There is incomplete sacralization of the L5 elemen t with bilateral Bertolotti segments. OTHER: No other significant finding. IMPRESSION: No evidence of urolithiasis or obstructive uropathy. No evidence of acute intra-abdomin al infectious/inflammatory process. Stable chronic and incidental findings as detailed above. COMMENT: Quality ID # [id number]: Final reports with documentation of one or more dose reduction techniques (e.g., Automated exposure control, adjustment of the mA and/or kV according to patient size, use of iterative reconstruction technique) TECHNICAL DOCUMENTATION: JOB ID: [id number] 2010 [employer]- All Rights Reserved Reading location - IP/workstation name: [email or web address]
[2020-03-19 13:48] LABS: T.VAGINALIS (WET MOUNT) NO TRICHOMONAS SEEN; YEAST (WET MOUNT) NO YEAST SEEN
[2020-03-19 13:49] LABS: BACTERIA (WET MOUNT) 3+ BACTERIA SEEN; EPITHELIALS (WET MOUNT) 3+ EPITHELIALS SEEN; WBCS (WET MOUNT) FEW WBCS SEEN
[2020-03-19] MEDS ORDERED: HYDROCODONE/ACETAMINOPHEN 5-325 MG TABLET PO ONE (14:00)
--- NOTE | 2020-03-19 14:41 | ER Document Report ---
ED GI/ - General Chief Complaint: Lower Abdominal Pain Stated Complaint: ABDOMINAL PAIN Time Seen by Provider: 03/19/20 09:32 Primary Care Provider: HANNAH WARD MD [Primary Care Provider] - Follow up as needed Mode of Arrival: Ambulatory Information source: Patient Notes: Patient is a 49-year-old female comes emergency room complaining of left lower abdominal discomfort. Patient states that it started yesterday and has increased and gotten worse. She calls it a sharp stabbing pain. She denies any nausea vomiting or diarrhea. She had a normal bowel movement this a.m. Patient is a past surgical history is for a uterine ablation and D&C in the past. She is also had a tubal ligation. She denies any fevers as well. Other medical history she has is hypertension and irregular heartbeat. Patient does state that she had a similar presentation to this when she had a flareup of her uterine fibroids. She also states that she has been peeing a little bit and has some burning. She is sexually active but not very often according to her she has no real concerns that this may be a sexually transmitted disease but has a somewhat new onset discharge vaginally. TRAVEL OUTSIDE OF THE [place] IN LAST 30 DAYS: No - HPI Patient complains to provider of: Abdominal pain, Dysuria, Hematuria, Vaginal discharge. No: , Vaginal pain Onset: Yesterday Timing/Duration: Gradual, Worse Quality of pain: Cramping, Sharp, Stabbing Severity at maximum: Severe Severity in ED: Severe Pain Level: 5 Context: denies: Bad food, Lifting, Out of the country travel, , Recent trauma Location: LLQ, Pelvis, Vaginal. No: Chest pain Vaginal bleeding (Compared to normal period): None Menstrual period history: Post-menopausal LMP: 5 years - Related Data Allergies/Adverse Reactions: No Known Allergies Allergy (Verified 09/11/18 05:47) Past Medical History - General Information source: Patient - Social History Smoking Status: Never Smoker Cigarette use (# per day): No Chew tobacco use (# tins/day): No Smoking Education Provided: No Frequency of alcohol use: None Drug Abuse: None Lives with: Family Family History: Reviewed & Not Pertinent - Past Medical History Cardiac Medical History: Reports: Hx Congestive Heart Failure, Hx Hypertension Denies: Hx Coronary Artery Disease, Hx Heart Attack Pulmonary Medical History: Reports: Hx Asthma Denies: Hx Bronchitis, Hx COPD, Hx Pneumonia Neurological Medical History: Reports: Hx Migraine - VERY RARE IN RECENT YEARS. Denies: Hx Cerebrovascular Accident, Hx Seizures Renal/ Medical History: Denies: Hx Peritoneal Dialysis Musculoskeletal Medical History: Reports Hx Arthritis Past Surgical History: Reports: Hx Gynecologic Surgery - uterine ablasion, Hx Tubal Ligation - Immunizations Hx Diphtheria, Pertussis, Tetanus Vaccination: Yes Review of Systems - Review of Systems Constitutional: See HPI. denies: Fever, Malaise, Weakness, Weight gain, Weight loss EENT: No symptoms reported Cardiovascular: No symptoms reported Respiratory: No symptoms reported Gastrointestinal: See HPI, Abdominal pain. denies: Diarrhea, Nausea, Vomiting, Constipation Genitourinary: See HPI, Hematuria Female Genitourinary: See HPI, Vaginal discharge. denies: Vaginal bleeding, Vaginal odor, Painful intercourse Musculoskeletal: No symptoms reported Skin: No symptoms reported Hematologic/Lymphatic: No symptoms reported Neurological/Psychological: No symptoms reported -: Yes All other systems reviewed and negative Physical Exam - Vital signs Vitals: Temp Pulse Resp BP Pulse Ox 98.1 F 126 H 17 153/96 H 100 03/19/20 09:17 03/19/20 09:17 03/19/20 09:17 03/19/20 09:17 03/19/20 09:17 Interpretation: Hypertensive, Tachycardic - Notes Notes: PHYSICAL EXAMINATION: GENERAL: Patient is a 49-year-old female who is well-nourished well-developed slightly overweight who is in no apparent distress on physical exam this morning however she does appear uncomfortable. Actually patient has tears in her eyes as I do my physical exam. HEAD: Atraumatic, normocephalic. EYES: Pupils equal round and reactive to light, extraocular movements intact, conjunctiva are normal. ENT: Nares patent, oropharynx clear without exudates. Moist mucous membranes. NECK: Normal range of motion, supple without lymphadenopathy LUNGS: Breath sounds clear to auscultation bilaterally and equal. No wheezes rales or rhonchi. HEART: Patient displays a tachycardic rate at 127 bpm no murmurs heard. Abdomen: Examined patient's abdomen shows bowel sounds present all 4 quads. She is only tender in the left lower quadrant to palpation. And it is more lateral. There is no flank pain noted on left side. Right side is normal no periumbilical tenderness is noted. Slightly mild suprapubic tenderness to palpation but the bladder does not feel distended. Female : Pelvic exam with nursing ovens supervisor at present shows patient to have normal external genitalia. Speculum exam shows that patient has very dry vaginal mucosa running down the length of the vagina to the vault area. She does have a slight pale discharge that is noted with a slight odor to it. There is visualization of the cervix that shows the office to be closed. There is no desquamation of the fascial portion of the cervix. Skin appears smooth. Patient has no CMT tenderness to palpation. Musculoskeletal: Normal range of motion, no pitting or edema. No cyanosis. NEUROLOGICAL: Normal speech, normal gait. Normal sensory, motor exams PSYCH: Normal mood, normal affect. SKIN: Warm, Dry, normal turgor, no rashes or lesions noted. Course - Re-evaluation Re-evalutation: 03/19/20 14:45 Patient's pelvic exam showed external genitalia to be normal appearance. Going along the inside of the vaginal canal the mucosa was moderately dry and did have a fishy type odor. There was some clear to whitish exudate in the vaginal vault area. The ossicles present closed and no signs of discharge coming from it. There was no CMT tenderness noted. - Vital Signs Vital signs: Temp Pulse Resp BP Pulse Ox 97.9 F 80 20 147/91 H 99 03/19/20 15:01 03/19/20 15:01 03/19/20 15:01 03/19/20 15:01 03/19/20 15:01 - Laboratory Result Diagrams: 03/19/20 09:53 03/19/20 09:53 Laboratory results interpreted by me: 03/19/20 03/19/20 03/19/20 09:53 09:53 10:25 RDW 14.2 H Est GFR (MDRD) Non-Af 49 L Glucose 117 H Calcium 10.6 H Urine Protein 30 H Urine Blood MODERATE H Discharge - Discharge Clinical Impression: Bacterial vaginosis Uterine fibroid Qualifiers: Uterine leiomyoma location: unspecified location Qualified Code(s): D25.9 - Leiomyoma of uterus, unspecified Condition: Stable Disposition: HOME, SELF-CARE Instructions: Abdominal Pain ([facility]), Pelvic Pain ([facility]), Vaginosis, Bacterial ([facility]) Additional Instructions: As we discussed it appears this is caused by your uterine fibroids. Your pelvic exam was non-contributory towards a STD and you had a low suspicion anyway. Does appear that you have a large amount of bacteria in your vaginal vault area with it being so dry even though there was no "clue cells". Appears to be somewhat of a bacterial vaginitis. At this point we will go ahead and treat you for a few days with the Flagyl to see if we makes the discomfort go away some more. Also highly suggest you follow-up with your [employer]STER for further intervention and continuation of care. This may be something after discussed with them about the fibroids causing increased amount of pain and discomfort. Prescriptions: Acetaminophen with Codeine [Tylenol #3 Tablet] 1 each PO Q4HP PRN #20 tablet PRN Reason: Metronidazole [Flagyl 500 mg Tablet] 500 mg PO BID #14 tablet Forms: Elevated Blood Pressure Referrals: HANNAH WARD MD [Primary Care Provider] - Follow up as needed
[2020-03-19 15:03] VITALS: BP 147/91
[2020-03-19 15:18] LABS: CHLAM PCR NOT DETECTED (NOT DETECT)
== END 2020-03-19 15:03 | disposition home or self-care (01) ==
LOC: ER 09:12
DX: N76.0 Acute vaginitis (principal); B96.89 Other specified bacterial agents as the cause of diseases classified elsewhere; D25.9 Leiomyoma of uterus, unspecified; R10.30 Lower abdominal pain, unspecified; R10.32 Left lower quadrant pain; R30.0 Dysuria; R31.9 Hematuria, unspecified; I11.0 Hypertensive heart disease with heart failure; R10.33 Periumbilical pain; J45.909 Unspecified asthma, uncomplicated; I50.9 Heart failure, unspecified
CPT/HCPCS: 99285; 96361; 96374; 36415; 87210; 83690; 85025; 81025; 80053; 81001; 87491; 87591; 74176; J1885; J7030

== ENCOUNTER 2020-08-25 14:22 | Emergency (ER) | payer SELFPAY ==
--- NOTE | 2020-08-25 15:03 | ER Document Report ---
ED Medical Screen (RME) - General Chief Complaint: Chest Pain Stated Complaint: CHEST PAIN Time Seen by Provider: 08/25/20 14:55 Primary Care Provider: FINESSE REINOSO PA-C [Primary Care Provider] - Follow up as needed TRAVEL OUTSIDE OF THE [place] IN LAST 30 DAYS: No - HPI Notes: Patient is a 50-year-old female with a history of HTN and irregular heartbeat who presents with chest pain that began 1 week ago. Patient describes her chest pain as substernal tightness that is intermittent. She denies shortness of breath, abdominal pain, palpitations, dizziness, vomiting, and fever. Patient was last seen by fire protection inspector a year ago, but does not have a current fire protection inspector as he has . - Related Data Allergies/Adverse Reactions: No Known Allergies Allergy (Verified 09/11/18 05:47) Past Medical History - Past Medical History Cardiac Medical History: Reports: Hx Congestive Heart Failure, Hx Hypertension Denies: Hx Coronary Artery Disease, Hx Heart Attack Pulmonary Medical History: Reports: Hx Asthma Denies: Hx Bronchitis, Hx COPD, Hx Pneumonia Neurological Medical History: Reports: Hx Migraine - VERY RARE IN RECENT YEARS. Denies: Hx Cerebrovascular Accident, Hx Seizures Renal/ Medical History: Denies: Hx Peritoneal Dialysis Musculoskeltal Medical History: Reports Hx Arthritis Past Surgical History: Reports: Hx Gynecologic Surgery - uterine ablasion, Hx Tubal Ligation - Immunizations Hx Diphtheria, Pertussis, Tetanus Vaccination: Yes Physical Exam - Vital signs Vitals: Temp Pulse Resp BP Pulse Ox 98.1 F 63 20 157/103 H 98 08/25/20 14:33 08/25/20 14:33 08/25/20 14:33 08/25/20 14:33 08/25/20 14:33 - Respiratory Respiratory status: No respiratory distress Breath sounds: Normal Chest palpation: Normal. No: Tender - Cardiovascular Rhythm: Regular Heart sounds: Normal auscultation Course - Re-evaluation Re-evalutation: I have greeted and performed a rapid initial assessment of this patient. A comprehensive ED assessment and evaluation of the patient, analysis of test results and completion of medical decision making process will be conducted by an additional ED providers. - Vital Signs Vital signs: Temp Pulse Resp BP Pulse Ox 98.1 F 63 20 157/103 H 98 08/25/20 14:33 08/25/20 14:33 08/25/20 14:33 08/25/20 14:33 08/25/20 14:33 Doctor's Discharge - Discharge Referrals: FINESSE REINOSO PA-C [Primary Care Provider] - Follow up as needed
--- NOTE | 2020-08-25 15:45 | RADIOLOGY REPORT (SQ) ---
EXAM DESCRIPTION: CHEST SINGLE VIEW IMAGES COMPLETED DATE/TIME: 08/25/2020 3:32 pm REASON FOR STUDY: chest pain COMPARISON: PA and lateral views of the chest from 08/26/2019. EXAM PARAMETERS: NUMBER OF VIEWS: One view. TECHNIQUE: An AP view of the chest was obtained. RADIATION DOSE: NA LIMITATIONS: None. FINDINGS: LUNGS AND PLEURA: Low inspiratory lung volumes without a superimposed consolidation, pleur al effusion or pneumothorax. MEDIASTINUM AND HILAR STRUCTURES: No mediastinal or hilar contour abnormality. HEART AND VASCULAR STRUCTURES: The cardiac silhouette is borderline enlarged. BONES: No acute findings. HARDWARE: None in the chest. OTHER: No other finding. IMPRESSION: Mild cardiomegaly without a superimposed acute cardiopulmonary process. TECHNICAL DOCUMENTATION: JOB ID: [id number] 2010 [employer]- All Rights Reserved Reading location - IP/workstation name: [email or web address]
[2020-08-25 16:03] LABS: ABSOLUTE EOSINOPHILS # (AUTO) 0.3 10^3/uL (0.0-0.6); ABSOLUTE LYMPHOCYTES (AUTO) 2.6 10^3/uL (0.5-4.7); ABSOLUTE MONOCYTES (AUTO) 0.5 10^3/uL (0.1-1.4); ABSOLUTE NEUT (AUTO) 3.5 10^3/uL (1.7-8.2); BASOPHILS % (AUTO) 0.5 % (0-2); EOSINOPHILS % (AUTO) 4.7 % (0-6); HEMATOCRIT 38.8 % (36.0-47.0); HEMOGLOBIN 12.3 g/dL (12.0-15.5); LYMPHOCYTES % (AUTO) 37.6 % (13-45); MEAN CORPUSCULAR HEMOGLOBIN 27.7 pg (27.0-33.4); MEAN CORPUSCULAR HGB CONC 31.6 g/dL (32.0-36.0); MEAN CORPUSCULAR VOLUME 88 fl (80-97); MONOCYTES % (AUTO) 7.5 % (3-13); PLATELET COUNT 246 10^3/uL (150-450); RED BLOOD COUNT 4.44 10^6/uL (3.72-5.28); RED CELL DISTRIBUTION WIDTH 14.3 % (11.5-14.0); SEGMENTED NEUTROPHILS % (AUTO) 49.7 % (42-78); TOTAL CELLS COUNTED % (AUTO) 100 %
[2020-08-25 16:04] LABS: ALBUMIN 3.6 g/dL (3.5-5.0); ALKALINE PHOSPHATASE 64 U/L (38-126); ANION GAP 7 (5-19); ASPARTATE AMINO TRANSFERASE 19 U/L (14-36); BILIRUBIN,DIRECT 0.2 mg/dL (0.0-0.4); BILIRUBIN,TOTAL 0.3 mg/dL (0.2-1.3); BLOOD UREA NITROGEN 14 mg/dL (7-20); CALCIUM 8.8 mg/dL (8.4-10.2); CARBON DIOXIDE 28 mmol/L (22-30); CHLORIDE 106 mmol/L (98-107); GLUCOSE 87 mg/dL (75-110); POTASSIUM 3.9 mmol/L (3.6-5.0); TOTAL PROTEIN 6.6 g/dL (6.3-8.2)
--- NOTE | 2020-08-25 16:56 | EKG REPORT ---
SEVERITY:- BORDERLINE ECG - SINUS RHYTHM PROBABLE LEFT ATRIAL ABNORMALITY BORDERLINE LEFT AXIS DEVIATION BORDERLINE T ABNORMALITIES, INFERIOR LEADS : Confirmed by: Cruzito Ramsey MD 25-Aug-2020 16:55:24
[2020-08-25] MEDS ORDERED: PREDNISONE 20 MG TABLET PO ONE (18:57)
[2020-08-25 19:37] VITALS: BP 159/91
--- NOTE | 2020-08-25 19:38 | ER Document Report ---
Entered by JOLEEN GRACE SCRIBE 08/25/20 1002 Acting as scribe for:KOTA SANTIAGO DO ED General - General Chief Complaint: Chest Pain Stated Complaint: CHEST PAIN Time Seen by Provider: 08/25/20 14:55 Primary Care Provider: SVETLANA DSOUZA MD [ACTIVE STAFF] - 08/26/20 FINESSE REINOSO PA-C [PHYSICIAN FOIL STAMP OPERATOR] - Follow up as needed Mode of Arrival: Ambulatory Information source: Patient Notes: This 50-year-old female patient presents to the emergency department today with complaints of substernal chest pain with associated shortness of breath. Patient states that her chest pain only occurs when she stands up, it is not exertional. Patient describes the chest pain as "someone pulling my chest apart". Patient mentions that her shortness of breath feels like her asthma flaring up. She had a negative stress and echocardiogram in the summer 2019. She denies any radiation of the chest pain, cough, fevers, sick contacts, or concern for COVID-19. TRAVEL OUTSIDE OF THE [place] IN LAST 30 DAYS: No - Related Data Allergies/Adverse Reactions: grass pollen Allergy (Verified 08/25/20 15:04) eggs Allergy (Uncoded 08/25/20 15:04) seafood Allergy (Uncoded 08/25/20 15:04) Home Medications: Aspirin. lisinopril. metoprolol. oxycodone. flonase Past Medical History - General Information source: Patient - Social History Smoking Status: Never Smoker Cigarette use (# per day): No Chew tobacco use (# tins/day): No Frequency of alcohol use: None Drug Abuse: None Lives with: Family Family History: Reviewed & Not Pertinent - Past Medical History Cardiac Medical History: Reports: Hx Congestive Heart Failure, Hx Hypertension Pulmonary Medical History: Reports: Hx Asthma Neurological Medical History: Reports: Hx Migraine - VERY RARE IN RECENT YEARS Musculoskeletal Medical History: Reports Hx Arthritis Past Surgical History: Reports: Hx Gynecologic Surgery - uterine ablasion, Hx Tubal Ligation - Immunizations Hx Diphtheria, Pertussis, Tetanus Vaccination: Yes Review of Systems - Review of Systems Constitutional: No symptoms reported EENT: No symptoms reported Cardiovascular: See HPI, Chest pain Respiratory: See HPI, Short of breath Gastrointestinal: No symptoms reported Genitourinary: No symptoms reported Female Genitourinary: No symptoms reported Musculoskeletal: No symptoms reported Skin: No symptoms reported Hematologic/Lymphatic: No symptoms reported Neurological/Psychological: No symptoms reported -: Yes All other systems reviewed and negative Physical Exam - Vital signs Vitals: Temp Pulse Resp BP Pulse Ox 98.1 F 63 20 157/103 H 98 08/25/20 14:33 08/25/20 14:33 08/25/20 14:33 08/25/20 14:33 08/25/20 14:33 - Notes Notes: Physical Exam: General: Alert, appears well. HEENT: Normocephalic. Atraumatic. PERRL. Extraocular movements intact. Oropharynx clear. Neck: Supple. Non-tender. Respiratory: No respiratory distress. Clear and equal breath sounds bilaterally. Cardiovascular: Regular rate and rhythm. Abdominal: Obese. Non-tender. No distension. Normal Bowel Sounds. Back: No gross abnormalities. Extremities: Moves all four extremities. Upper extremities: Normal inspection. Normal ROM. Lower extremities: Normal inspection. No edema. Normal ROM. Neurological: Normal cognition. AAOx4. Normal speech. Psychological: Normal affect. Normal Mood. Skin: Warm. Dry. Normal color. Course - Re-evaluation Re-evalutation: 08/25/20 18:59 MDM 50 year old female arrives with chest pain over 6 days and some SOB. SOB feels like her asthma. Chest discomfort is a pulling pain, no fever or chills or covid exposure. She has had similar in the past, has no pain presently and sees Dr. Sylvester Dsouaz locally. Stress test and echo in last 6 months or so is reported to be reassuring. Feel with the absence of pain here, absence of exertional pain and cxr (cardiomegally but ow -) reassuring, along wiht good looking blood work that the pt is reasonable for close follow up. Weather here locally cold and then damp and warmer may have exacerbated her asthma also. We discussed this as well as return here precautions and she expressed understanding. - Vital Signs Vital signs: Temp Pulse Resp BP Pulse Ox 98.2 F 54 L 20 159/91 H 100 08/25/20 19:35 08/25/20 19:35 08/25/20 14:33 08/25/20 19:35 08/25/20 19:35 - Laboratory Results Result Diagrams: 08/25/20 15:00 08/25/20 15:00 Laboratory Results Interpreted: 08/25/20 08/25/20 15:00 15:00 MCHC 31.6 L RDW 14.3 H Est GFR ( Amer) 58 L Est GFR (MDRD) Non-Af 48 L Critical Laboratory Results Reviewed: No Critical Results - Radiology Results Critical Radiology Results Reviewed: No Critical Results - EKG Interpretation by Me EKG shows normal: Sinus rhythm Rate: Normal Rhythm: NSR - NSr 62 BPM Left axis, no st elevation or depression my interp retation. Discharge - Discharge Clinical Impression: Asthma exacerbation Qualifiers: Asthma severity: mild Asthma persistence: persistent Qualified Code(s): J45.31 - Mild persistent asthma with (acute) exacerbation Chest pain Qualifiers: Chest pain type: unspecified Qualified Code(s): R07.9 - Chest pain, unspecified Condition: Stable Disposition: HOME, SELF-CARE Instructions: Asthma ([facility]), Chest Pain of Unclear Cause ([facility]) Additional Instructions: See Dr. Dsouza in follow up. Call his office in the morning. Return here for chest pain, shortness of breath, fever other problems or other concerns. Your medicine was sent to [facility]. Prescriptions: Methylprednisolone [Medrol Dosepack (4 mg/Tab) 21 Tab/Dosepak] 4 mg PO ASDIR PRN #1 tab.ds.pk PRN Reason: Referrals: FINESSE REINOSO PA-C [PHYSICIAN FOIL STAMP OPERATOR] - Follow up as needed SVETLANA DSOUZA MD [ACTIVE STAFF] - 08/26/20 I personally performed the services described in the documentation, reviewed and edited the documentation which was dictated to the scribe in my presence, and it accurately records my words and actions.
== END 2020-08-25 19:42 | disposition home or self-care (01) ==
LOC: ER 14:22
DX: R07.2 Precordial pain (principal); J45.31 Mild persistent asthma with (acute) exacerbation; I11.0 Hypertensive heart disease with heart failure; I50.9 Heart failure, unspecified; R06.02 Shortness of breath; Z79.899 Other long term (current) drug therapy; Z79.82 Long term (current) use of aspirin; Z79.891 Long term (current) use of opiate analgesic; Z91.048 Other nonmedicinal substance allergy status; Z91.013 Allergy to seafood; Z91.012 Allergy to eggs
CPT/HCPCS: 93005; 99285; 36415; 85025; 80053; 84484; 71045; 93010; J7512